=== PATIENT | female | born 1980 | race Caucasian/White ===

== ENCOUNTER 2018-12-17 16:12 | Emergency (ER) | payer OTHER, SELFPAY ==
[2018-12-17] VITALS (12 sets, daily range): BP systolic 90–116; BP diastolic 62–105; PULSE 53–67; RESP 12–19; TEMP 36.6; O2SAT 98–100
--- NOTE | 2018-12-17 16:21 | DI.RAD.S_ITS ---
PROCEDURE: XR CHEST 1V INDICATIONS: Chest pain. Short of breath. TECHNIQUE: One view of the chest was acquired. COMPARISON: [facility], CT, ABDOMEN/PELVIS WITH CONTRAST, 08/09/2014, 16:45. FINDINGS: Surgical changes and devices: None. Lungs and pleura: An incomplete inspiratory result is noted, causing a crowded appearance to the lung markings. No focal infiltrates are seen. No pneumothorax or significant pleural effusions are seen. Mediastinum: Mediastinal contours appear normal. Heart size is normal. Bones and chest wall: No suspicious bony lesions. Overlying soft tissues appear unremarkable. IMPRESSION: Portable chest within normal limits. Dictated by: Wayne Siegel M.D. on 12/17/2018 at 15:59 Approved by: Wayne Siegel M.D. on 12/17/2018 at 15:59
[2018-12-17] MEDS: ASPIRIN 81 MG TAB 324 MG PO (16:37)
[2018-12-17] MEDS: NITROGLYCERIN 0.4 MG SL TAB SL ×3 (16:37→16:51)
[2018-12-17] MEDS: SODIUM CHLORIDE 0.9% 1,000 ML 150 ML IV (16:38)
[2018-12-17 16:41] LABS: Add Manual Diff / Slide Review NO; Basophils Absolute Auto 0 /uL (0-100); Basophils Percent Auto 0.5 % (0-2); Eosinophils Absolute Auto 0 /uL (0-450); Eosinophils Percent Auto 0.2 % (2-4); Hematocrit 41.2 % (36-46); Hemoglobin 14.1 g/dL (12.0-16.0); Lymphocytes Absolute Auto 3300 /uL (1100-4500); Lymphocytes Percent Auto 34.6 % (25-40); Mean Corpuscular HGB Conc 34.3 % (30-36); Mean Corpuscular Hemoglobin 29.7 PG (26-34); Mean Corpuscular Volume 86.6 fL (80-100); Monocytes Absolute Auto 500 /uL (0-900); Monocytes Percent Auto 5.2 % (3-14); Neutrophils Absolute Auto 5700 /uL (1500-7000); Neutrophils Percent Auto 59.5 % (50-75); Platelet Count 368 X10^3/uL (150-400); Red Blood Cell Count 4.76 X10^6/uL (4.0-5.2); Red Cell Distribution Width 13.8 % (11.6-14.8); White Blood Cell Count 9.6 X10^3/uL (4.5-11.0)
[2018-12-17 16:52] LABS: Alanine Aminotransferase 32 IU/L (9-52); Albumin 4.6 g/dL (3.5-5.0); Albumin Globulin Ratio 1.4 (1.0-2.8); Alkaline Phosphatase 73 U/L (38-126); Aspartate Aminotransferase 29 IU/L (14-36); BUN Creatinine Ratio 12.9 (6-22); Bilirubin Total 0.7 mg/dL (0.2-1.3); Blood Urea Nitrogen 9 mg/dL (7-17); Calcium 9.7 mg/dL (8.4-10.2); Carbon Dioxide 25 mmol/L (22-32); Chloride 103 mmol/L (98-107); Creatine Kinase 106 U/L (30-135); Estimated Glomerular Filt Rate > 60.0 mL/min (>60); Globulin 3.2 g/dL (1.7-4.1); Glucose 103 mg/dL (70-100); HEMOLYSIS 19 (0-50); Lipase 30 U/L (23-300); Potassium 3.9 mmol/L (3.4-5.1); Sodium 139 mmol/L (137-145); Total Protein 7.8 g/dL (6.3-8.2)
[2018-12-17 17:07] LABS: CKMB % Relative Index 5.5 % (1.5-5.0); Creatine Kinase MB 5.81 ng/mL (<2.37); Troponin I 0.625 ng/mL (0.01-0.034)
[2018-12-17 17:08] LABS: B Type Natriuretic Peptide < 100 (<100)
--- NOTE | 2018-12-17 17:08 | DI.CT.S_ITS ---
PROCEDURE: CT ANGIO CHEST PE PROTOCOL INDICATIONS: CP, SOB TECHNIQUE: After the administration of intravenous contrast, 2 mm thick sections acquired from the pulmonary apices to the posterior costophrenic angles. 3-dimensional maximum intensity projection (MIP) coronal and sagittal reformats were then acquired through the thorax. For radiation dose reduction, the following was used: automated exposure control, adjustment of mA and/or kV according to patient size. COMPARISON: None. FINDINGS: Image quality: Excellent. Pulmonary arteries: Pulmonary arteries are normal in size, and demonstrate no intraluminal filling defects to suggest central pulmonary embolism. Lungs and pleura: Lungs are clear. No pleural effusions or pneumothorax. Central and peripheral airways are patent. Mediastinum: Heart size is normal, without pericardial effusion. No mediastinal or hilar adenopathy. Thoracic aorta is normal in caliber and enhancement. Esophagus is normal in caliber, without hiatal hernia. Bones and chest wall: No suspicious bony lesions. Ribs and thoracic spine appear intact throughout. Thyroid gland is unremarkable. No axillary or supraclavicular adenopathy. Abdomen: Visualized upper abdominal solid organs appear normal in the early arterial phase of enhancement. Hepatic steatosis. IMPRESSION: 1. No pulmonary embolism. 2. No acute airspace opacity. 3. Hepatic steatosis. Comment: Findings were discussed with [facility] ED physician at the time of dictation. Dictated by: Paulie Sinha M.D. on 12/17/2018 at 17:50 Approved by: Paulie Sinha M.D. on 12/17/2018 at 17:56
[2018-12-17] MEDS: HEPARIN 5,000 UNIT/ML VIAL 5000 UNIT IV (17:14)
[2018-12-17 17:32] LABS: PTT Partial Thromboplastin Tim 28 SECONDS (26.4-36.2)
--- NOTE | 2018-12-17 17:43 | ED.CHESTPAIN ---
HPI - Chest Pain General Chief Complaint: Chest Pain Stated Complaint: chest pain x6 days Time Seen by Provider: 12/17/18 16:14 Source: patient Mode of arrival: wheelchair Limitations: no limitations History of Present Illness HPI narrative: 38-year-old female smoker with extensive family cardiac history (father in his 30s of [place]) presents with left anterior crushing chest pain with radiation to her left shoulder and her back which is made worse with exertion. She has associated significant shortness of breath nausea and diaphoresis. She denies any injury, recent trauma, history of clot. This is her 3rd visit in the past few days of her similar. The 1st visit she was diagnosed with what sounded like a musculoskeletal problem, on the 2nd visit she had a very slight bump in her troponin but still in the indeterminate range and was given return precautions. Her symptoms are worsening and now with minimal exertion she experiences significant trouble. She had did take a break between the waiting room and the emergency department because she became so short of breath MD complaint: chest pain Onset (ago): day(s) Duration: progressively worsening Onset: during rest Pain location: left chest Severity: severe Quality: aching and heaviness Pain radiation: LUE and neck Relieving factors: rest Exacerbating factors: exertion Associated symptoms: nausea, diaphoresis and dyspnea Treatments prior to arrival chest pain: none Related Data On Oral Contraceptives: No Allergies Allergy/AdvReac Type Severity Reaction Status Date / Time From ALEVE Allergy Intermediate SHAKES , Uncoded 08/17/17 12:25 PASS OUT IBUPROFEN Allergy Intermediate SHAKES, Uncoded 08/17/17 12:25 PASS OUT, VOMITING CODEINE Allergy Mild N/V Uncoded 08/17/17 12:25 From LYRICA Allergy Mild VERTIGO Uncoded 08/17/17 12:25 From AMBIEN Allergy Unknown HALLUCINATIONS, Uncoded 08/17/17 12:25 DIZZINESS, LIGHTHEADEDNESS Review of Systems Constitutional Denies chills, Denies fever(s), Denies lethargy and Denies weakness Eyes Denies change in vision, Denies eye discharge, Denies irritation and Denies loss of vision ENT Ears, Nose, Mouth, and Throat: Denies change in voice, Denies neck pain and Denies sore throat Cardiovascular Reports chest pain, Denies irregular heart rhythm, Denies lightheadedness, Denies palpitations, Reports dyspnea, Reports dyspnea on exertion and Denies orthopnea Respiratory Denies cough, Reports dyspnea, Reports dyspnea on exertion and Denies wheezing Gastrointestinal Gastrointestinal: Denies abdominal pain, Denies change in bowel habits, Denies diarrhea, Denies nausea and Denies vomiting Genitourinary Denies hematuria, Denies flank pain, Denies urinary incontinence and Denies urinary urgency Musculoskeletal Denies neck pain Integumentary/Breasts Denies pruritus, Denies erythema, Denies rash and Denies wounds Neurologic Denies confusion, Denies loss of vision and Denies weakness Psychiatric Denies anxiety, Denies confusion, Denies depression, Denies homicidal ideation and Denies suicidal ideation Endocrine Denies palpitations Hematologic/Lymphatic Denies easy bruising Allergic/Immunologic Denies wheezing PFSH Social History Smoking Status: Current every day smoker Social History Smoking Status: Current every day smoker Exam Narrative Exam Narrative: GENERAL: [38] year old patient appears stated age. Well-nourished, well-developed patient, in severe distress. Clutching her chest, diaphoretic, in respiratory distress HEAD: Atraumatic. Normocephalic. EYES: Pupils equal round and reactive. Extraocular motions intact. No scleral icterus. No injection or drainage. ENT: Nose without bleeding, purulent drainage. Throat without erythema, tonsillar hypertrophy or exudate. Airway patent. NECK: Trachea midline. Non tender CARDIOVASCULAR: Regular rate and rhythm without murmurs, gallops, or rubs. RESPIRATORY: Clear to auscultation. Breath sounds equal bilaterally. No wheezes, rales, or rhonchi. GASTROINTESTINAL: Abdomen soft, non-tender, nondistended. EXTREMITIES: No edema or joint tenderness. BACK: Nontender without deformity or crepitance. No flank tenderness. NEURO: AOx3. SKIN: No rash or erythema of visible areas Initial Vital Signs Initial Vital Signs: Vital Signs Pulse Rate 67 12/17/18 16:14 Respiratory Rate 17 12/17/18 16:14 Blood Pressure 112/76 12/17/18 16:14 Pulse Oximetry 100 12/17/18 16:14 Course Orders Ordered: ED Orders 12/17/18 16:20 B Type Natriuretic Peptide Stat Complete Blood Count AUTO DIFF Stat Comprehensive Metabolic Panel Stat Lipase Stat Partial Thromboplastin Time Stat Troponin & CK Cardiac Panel Stat 12/17/18 16:21 XR chest 1V Stat EKG-12 Lead Stat 12/17/18 17:08 CT angio chest PE protocol Stat 12/17/18 17:15 PTT [Partial Thromboplastin Time] Q6H 12/17/18 23:15 PTT [Partial Thromboplastin Time] Q6H 12/18/18 05:15 PTT [Partial Thromboplastin Time] Q6H 12/18/18 11:15 PTT [Partial Thromboplastin Time] Q6H Sodium Chloride (Normal Saline 0.9%) 1,000 mls @ 150 mls/hr IV CONT ELLIOT Last Admin: 12/17/18 16:38 Dose: 150 mls/hr Heparin Sodium/Dextrose (Heparin Drip) 25,000 unit in 500 mls @ 19.16 mls/hr IV CONT ELLIOT; Protocol Last Admin: 12/17/18 17:49 Dose: 12 units/kg/hr, 19.16 mls/hr Discontinued Medications Aspirin (Aspirin Chew) 324 mg PO NOW ONE Stop: 12/17/18 16:22 Last Admin: 12/17/18 16:37 Dose: 324 mg Fentanyl (Sublimaze) 50 mcg IV NOW ONE Stop: 12/17/18 18:13 Last Admin: 12/17/18 18:19 Dose: 50 mcg Heparin Sodium (Porcine) (Heparin) 5,000 unit IV NOW ONE Stop: 12/17/18 17:08 Last Admin: 12/17/18 17:14 Dose: 5,000 unit Metoprolol Tartrate (Lopressor) 5 mg IV NOW ONE Stop: 12/17/18 16:22 Last Admin: 12/17/18 17:45 Dose: Not Given Nitroglycerin (Nitrostat) 0.4 mg SL [id number] PRN PRN Reason: Chest Pain Last Admin: 12/17/18 16:51 Dose: 0.4 mg Admin: 12/17/18 16:44 Dose: 0.4 mg Admin: 12/17/18 16:37 Dose: 0.4 mg Reevaluation(s) Reevaluation #1: minimal change with NG 0.4SL, however patient had large drop in BP. HR remains in the 50s, will hold metoprolol Reevaluation #2: given BP in 90s, will hold on morphine, patient given Fentanyl Consultations Consultation #1: call to cardio, happy with our workup and plan, admit to hospitalist Consultation #2: Dr. Suero happy to accept Vital Signs - 8 hr 12/17/18 16:14 12/17/18 16:24 12/17/18 16:30 Temperature 97.9 F Pulse Rate 67 64 58 L Respiratory Rate 17 19 17 Blood Pressure 112/76 Blood Pressure [Right Arm] 112/76 116/73 Pulse Oximetry 100 100 100 12/17/18 16:37 12/17/18 16:44 12/17/18 16:50 Temperature Pulse Rate 63 53 L 56 L Respiratory Rate Blood Pressure 116/73 104/77 115/105 H Blood Pressure [Right Arm] Pulse Oximetry 12/17/18 16:51 12/17/18 16:55 12/17/18 17:00 Temperature Pulse Rate 56 L 54 L 55 L Respiratory Rate 17 Blood Pressure 115/102 H 90/62 Blood Pressure [Right Arm] 116/73 Pulse Oximetry 100 12/17/18 17:30 12/17/18 18:21 Temperature Pulse Rate 62 62 Respiratory Rate 15 12 Blood Pressure Blood Pressure [Right Arm] 115/76 111/79 Pulse Oximetry 99 98 MDM - Chest Pain Lab Data Result diagrams: 12/17/18 16:20 12/17/18 16:20 Lab Results 12/17/18 12/17/18 12/17/18 Range/Units 16:20 16:20 16:20 WBC 9.6 (4.5-11.0) X10^3/uL RBC 4.76 (4.0-5.2) X10^6/uL Hgb 14.1 (12.0-16.0) g/dL Hct 41.2 (36-46) % MCV 86.6 (80-100) fL MCH 29.7 (26-34) PG MCHC 34.3 (30-36) % RDW 13.8 (11.6-14.8) % Plt Count 368 (150-400) X10^3/uL Neut % (Auto) 59.5 (50-75) % Lymph % (Auto) 34.6 (25-40) % [place] % (Auto) 5.2 (3-14) % Eos % (Auto) 0.2 L (2-4) % Baso % (Auto) 0.5 (0-2) % Neut # (Auto) 5700 (1039-5469) /uL Lymph # (Auto) 3300 (1798-2370) /uL [place] # (Auto) 500 (0-900) /uL Eos # (Auto) 0 (0-450) /uL Baso # (Auto) 0 (0-100) /uL APTT 28 (26.4-36.2) SECONDS Sodium 139 (137-145) mmol/L Potassium 3.9 (3.4-5.1) mmol/L Chloride 103 (98-107) mmol/L Carbon Dioxide 25 (22-32) mmol/L BUN 9 (7-17) mg/dL Creatinine 0.70 (0.52-1.04) mg/dL Estimated GFR > 60.0 (>60) mL/min BUN/Creatinine Ratio 12.9 (6-22) Glucose 103 H (70-100) mg/dL Calcium 9.7 (8.4-10.2) mg/dL Total Bilirubin 0.7 (0.2-1.3) mg/dL AST 29 (14-36) IU/L ALT 32 (9-52) IU/L Alkaline Phosphatase 73 (38-126) U/L Total Creatine Kinase 106 (30-135) U/L CK-MB (CK-2) 5.81 H (<2.37) ng/mL CK-MB (CK-2) Rel Index 5.5 H (1.5-5.0) % Troponin I 0.625 H* (0.01-0.034) ng/mL B-Natriuretic Peptide < 100 (<100) Total Protein 7.8 (6.3-8.2) g/dL Albumin 4.6 (3.5-5.0) g/dL Globulin 3.2 (1.7-4.1) g/dL Albumin/Globulin Ratio 1.4 (1.0-2.8) Lipase 30 (23-300) U/L Imaging Data CT scan - chest: Radiologist's impression: [address] [id number] [address] Scan Report Signed Patient: Daphne Connelly RMR#: [id number] : 1980Acct:[id number] Age/Sex: 38 / FDate of Service: 12/17/18 Loc: ED Accession Number: [id number] Procedure: CT angio chest PE protocol Ordering Provider: Jhon Cabral D.O. PROCEDURE: CT ANGIO CHEST PE PROTOCOL INDICATIONS: CP, SOB TECHNIQUE: After the administration of intravenous contrast, 2 mm thick sections acquired from the pulmonary apices to the posterior costophrenic angles. 3-dimensional maximum intensity projection (MIP) coronal and sagittal reformats were then acquired through the thorax. For radiation dose reduction, the following was used: automated exposure control, adjustment of mA and/or kV according to patient size. COMPARISON: None. FINDINGS: Image quality: Excellent. Pulmonary arteries: Pulmonary arteries are normal in size, and demonstrate no intraluminal filling defects to suggest central pulmonary embolism. Lungs and pleura: Lungs are clear. No pleural effusions or pneumothorax. Central and peripheral airways are patent. Mediastinum: Heart size is normal, without pericardial effusion. No mediastinal or hilar adenopathy. Thoracic aorta is normal in caliber and enhancement. Esophagus is normal in caliber, without hiatal hernia. Bones and chest wall: No suspicious bony lesions. Ribs and thoracic spine appear intact throughout. Thyroid gland is unremarkable. No axillary or supraclavicular adenopathy. Abdomen: Visualized upper abdominal solid organs appear normal in the early arterial phase of enhancement. Hepatic steatosis. IMPRESSION: 1. No pulmonary embolism. 2. No acute airspace opacity. 3. Hepatic steatosis. Comment: Findings were discussed with [facility] ED physician at the time of dictation. Dictated by: Paulie Sinha M.D. on 12/17/2018 at 17:50 Approved by: Paulie Sinha M.D. on 12/17/2018 at 17:56 Critical Care Time Critical Care Time: Yes Total Critical Care Time: 30 Attestation: The high probability of a clinically significant, sudden or life threatening deterioration of the [CV] system(s) required my full and direct attention, intervention and personal management. The aggregate critical care time was [30] minutes. This time is in addition to time spent performing reported procedures but includes the following: [x] Data Review and interpretation [x] Patient assessment and monitoring of vital signs [x] Documentation [x] Medication orders and management Discharge Plan Departure Patient Disposition: [facility] Clinical Impression: ACS (acute coronary syndrome) Referrals: Dane Briseno MD [Primary Care Provider] -
[2018-12-17] MEDS: HEPARIN DRIP 25,000 UNIT/500 ML IV.SOLN 19.16 UNIT IV (17:49)
--- NOTE | 2018-12-17 17:50 | ED_ITS ---
HPI - Chest Pain General Chief Complaint: Chest Pain Stated Complaint: chest pain x6 days Time Seen by Provider: 12/17/18 16:14 Source: patient Mode of arrival: wheelchair Limitations: no limitations History of Present Illness HPI narrative: 38-year-old female smoker with extensive family cardiac history (father in his 30s of [place]) presents with left anterior crushing chest pain with radiation to her left shoulder and her back which is made worse with exertion. She has associated significant shortness of breath nausea and diaphoresis. She denies any injury, recent trauma, history of clot. This is her 3rd visit in the past few days of her similar. The 1st visit she was diagnosed with what sounded like a musculoskeletal problem, on the 2nd visit she had a very slight bump in her troponin but still in the indeterminate range and was given return precautions. Her symptoms are worsening and now with minimal exertion she experiences significant trouble. She had did take a break between the waiting room and the emergency department because she became so short of breath MD complaint: chest pain Onset (ago): day(s) Duration: progressively worsening Onset: during rest Pain location: left chest Severity: severe Quality: aching and heaviness Pain radiation: LUE and neck Relieving factors: rest Exacerbating factors: exertion Associated symptoms: nausea, diaphoresis and dyspnea Treatments prior to arrival chest pain: none Related Data On Oral Contraceptives: No Allergies Allergy/AdvReac Type Severity Reaction Status Date / Time From ALEVE Allergy Intermediate SHAKES , Uncoded 08/17/17 12:25 PASS OUT IBUPROFEN Allergy Intermediate SHAKES, Uncoded 08/17/17 12:25 PASS OUT, VOMITING CODEINE Allergy Mild N/V Uncoded 08/17/17 12:25 From LYRICA Allergy Mild VERTIGO Uncoded 08/17/17 12:25 From AMBIEN Allergy Unknown HALLUCINATIONS, Uncoded 08/17/17 12:25 DIZZINESS, LIGHTHEADEDNESS Review of Systems Constitutional Denies chills, Denies fever(s), Denies lethargy and Denies weakness Eyes Denies change in vision, Denies eye discharge, Denies irritation and Denies loss of vision ENT Ears, Nose, Mouth, and Throat: Denies change in voice, Denies neck pain and Denies sore throat Cardiovascular Reports chest pain, Denies irregular heart rhythm, Denies lightheadedness, Denies palpitations, Reports dyspnea, Reports dyspnea on exertion and Denies orthopnea Respiratory Denies cough, Reports dyspnea, Reports dyspnea on exertion and Denies wheezing Gastrointestinal Gastrointestinal: Denies abdominal pain, Denies change in bowel habits, Denies diarrhea, Denies nausea and Denies vomiting Genitourinary Denies hematuria, Denies flank pain, Denies urinary incontinence and Denies urinary urgency Musculoskeletal Denies neck pain Integumentary/Breasts Denies pruritus, Denies erythema, Denies rash and Denies wounds Neurologic Denies confusion, Denies loss of vision and Denies weakness Psychiatric Denies anxiety, Denies confusion, Denies depression, Denies homicidal ideation and Denies suicidal ideation Endocrine Denies palpitations Hematologic/Lymphatic Denies easy bruising Allergic/Immunologic Denies wheezing PFSH Social History Smoking Status: Current every day smoker Social History Smoking Status: Current every day smoker Exam Narrative Exam Narrative: GENERAL: [38] year old patient appears stated age. Well-nourished, well-developed patient, in severe distress. Clutching her chest, diaphoretic, in respiratory distress HEAD: Atraumatic. Normocephalic. EYES: Pupils equal round and reactive. Extraocular motions intact. No scleral icterus. No injection or drainage. ENT: Nose without bleeding, purulent drainage. Throat without erythema, tonsillar hypertrophy or exudate. Airway patent. NECK: Trachea midline. Non tender CARDIOVASCULAR: Regular rate and rhythm without murmurs, gallops, or rubs. RESPIRATORY: Clear to auscultation. Breath sounds equal bilaterally. No wheezes, rales, or rhonchi. GASTROINTESTINAL: Abdomen soft, non-tender, nondistended. EXTREMITIES: No edema or joint tenderness. BACK: Nontender without deformity or crepitance. No flank tenderness. NEURO: AOx3. SKIN: No rash or erythema of visible areas Initial Vital Signs Initial Vital Signs: Vital Signs Pulse Rate 67 12/17/18 16:14 Respiratory Rate 17 12/17/18 16:14 Blood Pressure 112/76 12/17/18 16:14 Pulse Oximetry 100 12/17/18 16:14 Course Orders Ordered: ED Orders 12/17/18 16:20 B Type Natriuretic Peptide Stat Complete Blood Count AUTO DIFF Stat Comprehensive Metabolic Panel Stat Lipase Stat Partial Thromboplastin Time Stat Troponin & CK Cardiac Panel Stat 12/17/18 16:21 XR chest 1V Stat EKG-12 Lead Stat 12/17/18 17:08 CT angio chest PE protocol Stat 12/17/18 17:15 PTT [Partial Thromboplastin Time] Q6H 12/17/18 23:15 PTT [Partial Thromboplastin Time] Q6H 12/18/18 05:15 PTT [Partial Thromboplastin Time] Q6H 12/18/18 11:15 PTT [Partial Thromboplastin Time] Q6H Sodium Chloride (Normal Saline 0.9%) 1,000 mls @ 150 mls/hr IV CONT ELLIOT Last Admin: 12/17/18 16:38 Dose: 150 mls/hr Heparin Sodium/Dextrose (Heparin Drip) 25,000 unit in 500 mls @ 19.16 mls/hr IV CONT ELLIOT; Protocol Last Admin: 12/17/18 17:49 Dose: 12 units/kg/hr, 19.16 mls/hr Discontinued Medications Aspirin (Aspirin Chew) 324 mg PO NOW ONE Stop: 12/17/18 16:22 Last Admin: 12/17/18 16:37 Dose: 324 mg Fentanyl (Sublimaze) 50 mcg IV NOW ONE Stop: 12/17/18 18:13 Last Admin: 12/17/18 18:19 Dose: 50 mcg Heparin Sodium (Porcine) (Heparin) 5,000 unit IV NOW ONE Stop: 12/17/18 17:08 Last Admin: 12/17/18 17:14 Dose: 5,000 unit Metoprolol Tartrate (Lopressor) 5 mg IV NOW ONE Stop: 12/17/18 16:22 Last Admin: 12/17/18 17:45 Dose: Not Given Nitroglycerin (Nitrostat) 0.4 mg SL [id number] PRN PRN Reason: Chest Pain Last Admin: 12/17/18 16:51 Dose: 0.4 mg Admin: 12/17/18 16:44 Dose: 0.4 mg Admin: 12/17/18 16:37 Dose: 0.4 mg Reevaluation(s) Reevaluation #1: minimal change with NG 0.4SL, however patient had large drop in BP. HR remains in the 50s, will hold metoprolol Reevaluation #2: given BP in 90s, will hold on morphine, patient given Fentanyl Consultations Consultation #1: call to cardio, happy with our workup and plan, admit to hospitalist Consultation #2: Dr. Suero happy to accept Vital Signs - 8 hr 12/17/18 16:14 12/17/18 16:24 12/17/18 16:30 Temperature 97.9 F Pulse Rate 67 64 58 L Respiratory Rate 17 19 17 Blood Pressure 112/76 Blood Pressure [Right Arm] 112/76 116/73 Pulse Oximetry 100 100 100 12/17/18 16:37 12/17/18 16:44 12/17/18 16:50 Temperature Pulse Rate 63 53 L 56 L Respiratory Rate Blood Pressure 116/73 104/77 115/105 H Blood Pressure [Right Arm] Pulse Oximetry 12/17/18 16:51 12/17/18 16:55 12/17/18 17:00 Temperature Pulse Rate 56 L 54 L 55 L Respiratory Rate 17 Blood Pressure 115/102 H 90/62 Blood Pressure [Right Arm] 116/73 Pulse Oximetry 100 12/17/18 17:30 12/17/18 18:21 Temperature Pulse Rate 62 62 Respiratory Rate 15 12 Blood Pressure Blood Pressure [Right Arm] 115/76 111/79 Pulse Oximetry 99 98 MDM - Chest Pain Lab Data Result diagrams: 12/17/18 16:20 12/17/18 16:20 Lab Results 12/17/18 12/17/18 12/17/18 Range/Units 16:20 16:20 16:20 WBC 9.6 (4.5-11.0) X10^3/uL RBC 4.76 (4.0-5.2) X10^6/uL Hgb 14.1 (12.0-16.0) g/dL Hct 41.2 (36-46) % MCV 86.6 (80-100) fL MCH 29.7 (26-34) PG MCHC 34.3 (30-36) % RDW 13.8 (11.6-14.8) % Plt Count 368 (150-400) X10^3/uL Neut % (Auto) 59.5 (50-75) % Lymph % (Auto) 34.6 (25-40) % [place] % (Auto) 5.2 (3-14) % Eos % (Auto) 0.2 L (2-4) % Baso % (Auto) 0.5 (0-2) % Neut # (Auto) 5700 (0090-9185) /uL Lymph # (Auto) 3300 (3700-2494) /uL [place] # (Auto) 500 (0-900) /uL Eos # (Auto) 0 (0-450) /uL Baso # (Auto) 0 (0-100) /uL APTT 28 (26.4-36.2) SECONDS Sodium 139 (137-145) mmol/L Potassium 3.9 (3.4-5.1) mmol/L Chloride 103 (98-107) mmol/L Carbon Dioxide 25 (22-32) mmol/L BUN 9 (7-17) mg/dL Creatinine 0.70 (0.52-1.04) mg/dL Estimated GFR > 60.0 (>60) mL/min BUN/Creatinine Ratio 12.9 (6-22) Glucose 103 H (70-100) mg/dL Calcium 9.7 (8.4-10.2) mg/dL Total Bilirubin 0.7 (0.2-1.3) mg/dL AST 29 (14-36) IU/L ALT 32 (9-52) IU/L Alkaline Phosphatase 73 (38-126) U/L Total Creatine Kinase 106 (30-135) U/L CK-MB (CK-2) 5.81 H (<2.37) ng/mL CK-MB (CK-2) Rel Index 5.5 H (1.5-5.0) % Troponin I 0.625 H* (0.01-0.034) ng/mL B-Natriuretic Peptide < 100 (<100) Total Protein 7.8 (6.3-8.2) g/dL Albumin 4.6 (3.5-5.0) g/dL Globulin 3.2 (1.7-4.1) g/dL Albumin/Globulin Ratio 1.4 (1.0-2.8) Lipase 30 (23-300) U/L Imaging Data CT scan - chest: Radiologist's impression: [address] [address] [address] Scan Report Signed Patient: Daphne Connelly RMR#: [id number] : 1980Acct:[id number] Age/Sex: 38 / FDate of Service: 12/17/18 Loc: ED Accession Number: [id number] Procedure: CT angio chest PE protocol Ordering Provider: Jhon Cabral D.O. PROCEDURE: CT ANGIO CHEST PE PROTOCOL INDICATIONS: CP, SOB TECHNIQUE: After the administration of intravenous contrast, 2 mm thick sections acquired from the pulmonary apices to the posterior costophrenic angles. 3-dimensional maximum intensity projection (MIP) coronal and sagittal reformats were then acquired through the thorax. For radiation dose reduction, the following was used: automated exposure contro l, adjustment of mA and/or kV according to patient size. COMPARISON: None. FINDINGS: Image quality: Excellent. Pulmonary arteries: Pulmonary arteries are normal in size, and demonstrate no intraluminal filling defects to suggest central pulmonary embolism. Lungs and pleura: Lungs are clear. No pleural effusions or pneumothorax. Central and peripheral airways are patent. Mediastinum: Heart size is normal, without pericardial effusion. No mediastinal or hilar adenopathy. Thoracic aorta is normal in caliber and enhancement. Esophagus is normal in caliber, without hiatal hernia. Bones and chest wall: No suspicious bony lesions. Ribs and thoracic spine victorino ear intact throughout. Thyroid gland is unremarkable. No axillary or supraclavicular adenopathy. Abdomen: Visualized upper abdominal solid organs appear normal in the early arterial phase of enhancement. Hepatic steatosis. IMPRESSION: 1. No pulmonary embolism. 2. No acute airspace opacity. 3. Hepatic steatosis. Comment: Findings were discussed with [facility] ED physician at the time of dictation. Dictated by: Paulie Sinha M.D. on 12/17/2018 at 17:50 Approved by: Paulie Sinha M.D. on 12/17/2018 at 17:56 Critical Care Time Critical Care Time: Yes Total Critical Care Time: 30 Attestation: The high probability of a clinically significant, sudden or life threatening deterioration of the [CV] system(s) required my full and direct attention, int ervention and personal management. The aggregate critical care time was [30] minutes. This time is in addition to time spent performing reported procedures but includes the following: [x] Data Review and interpretation [x] Patient assessment and monitoring of vital signs [x] Documentation [x] Medication orders and management Discharge Plan Departure Patient Disposition: [facility] Clinical Impression: ACS (acute coronary syndrome) Referrals: Dane Briseno MD [Primary Care Provider] -
[2018-12-17] MEDS: fentaNYL 100 MCG/2 ML INJ 50 MCG IV (18:19)
--- NOTE | 2018-12-17 18:47 | PC.NURSE ---
Recap Summary note, pt has had chest pain in her upper left chest into her shoulder and arm, feels like an ache and makes it hard to breathe Lungs are clear, pt alert and able to get needs met. Today shown to have an elevated troponin, hx of cardiac compromise in her immediate family. All meds we've given have not helped so far. Patient making arrangements for her children and herself as she is being transferred.
[2018-12-17] MEDS: ONDANSETRON 4 MG/2 ML INJ IV (19:36)
[2018-12-17] MEDS: MORPHINE 4 MG/ML INJ IV (19:36)
== END 2018-12-17 19:51 | disposition short-term general hospital (02) ==
PROVIDERS: Emergency Provider Emergency Medicine
DX: I24.9 Acute ischemic heart disease, unspecified (principal)
CPT/HCPCS: 36591; 71045; 71275; 80053; 82550; 82553; 83690; 83880; 84484; 85025; 85730; 93005; 93010; 96361; 96365; 96375; 96376; 99285; J1644; J2270; J2405; J3010; Q9967

== ENCOUNTER 2020-03-22 11:40 | Emergency (ER) | payer OTHER, SELFPAY ==
[2020-03-22] VITALS (12 sets, daily range): BP systolic 125–162; BP diastolic 56–84; PULSE 67–87; RESP 14–18; TEMP 36.8; O2SAT 96–99; BMI 34.5
[2020-03-22 12:49] LABS: Add Manual Diff / Slide Review NO; Basophils Absolute Auto 0 /uL (0-100); Basophils Percent Auto 0.4 % (0-2); Eosinophils Absolute Auto 300 /uL (0-450); Eosinophils Percent Auto 4.4 % (2-4); Hematocrit 38.1 % (36-46); Hemoglobin 12.9 g/dL (12.0-16.0); Lymphocytes Absolute Auto 2300 /uL (1100-4500); Lymphocytes Percent Auto 33.2 % (25-40); Mean Corpuscular Hemoglobin 29.6 PG (26-34); Mean Corpuscular Volume 87.2 fL (80-100); Monocytes Absolute Auto 500 /uL (0-900); Monocytes Percent Auto 6.4 % (3-14); Neutrophils Absolute Auto 3900 /uL (1500-7000); Neutrophils Percent Auto 55.6 % (50-75); Platelet Count 356 X10^3/uL (150-400); Red Blood Cell Count 4.37 X10^6/uL (4.0-5.2); Red Cell Distribution Width 13.4 % (11.6-14.8); White Blood Cell Count 7.1 X10^3/uL (4.5-11.0)
[2020-03-22 12:57] LABS: Alanine Aminotransferase 44 IU/L (<35); Albumin 4.1 g/dL (3.5-5.0); Albumin Globulin Ratio 1.2 (1.0-2.8); Alkaline Phosphatase 115 U/L (38-126); Aspartate Aminotransferase 44 IU/L (14-36); BUN Creatinine Ratio 15.9 (6-22); Bilirubin Total 0.3 mg/dL (0.2-1.3); Blood Urea Nitrogen 11 mg/dL (7-17); Calcium 9.4 mg/dL (8.4-10.2); Carbon Dioxide 30 mmol/L (22-32); Chloride 106 mmol/L (98-107); Estimated Glomerular Filt Rate > 60.0 mL/min (>60); Globulin 3.3 g/dL (1.7-4.1); Glucose 110 mg/dL (70-100); HEMOLYSIS < 15 (0-50); Lactate (Lactic Acid) 0.9 mmol/L (0.7-2.1); Potassium 4.1 mmol/L (3.4-5.1); Sodium 140 mmol/L (137-145); Total Protein 7.4 g/dL (6.3-8.2)
[2020-03-22 13:06] LABS: NT-proBNP (BNP-Adult 18+) 275 pg/mL (<125)
[2020-03-22 13:13] LABS: Procalcitonin < 0.05 ng/mL (<0.5)
--- NOTE | 2020-03-22 14:18 | ED_ITS ---
HPI - Extremity Problem <LONNIE Valdez - Last Filed: 03/22/20 15:36> General Chief complaint: Extremity Problem,Nontraumatic Stated complaint: Bad Rash On Both Legs and Hands, Legs Swollen Time Seen by Provider: 03/22/20 12:27 Source: patient Mode of arrival: Ambulatory Limitations: no limitations History of Present Illness HPI Narrative: The patient is a 39-year-old female current smoker with history of cardiac disease who presents with a chief complaint of a rash in bilateral l ower legs extending up to her hands. She states she has had this rash coming over the past 10 years, she put the cream a and it goes away. She is not sure what clean her primary care provider has prescribed. She states that it has gotten really bad in the past week and half to 2 weeks. She states she is scratching so bad because the rash is so itchy. She states that she has developed wounds and not sure if it is related to scratching or not. She denies any fevers nausea vomiting or diarrhea. She states that she has used multiple [id number] creams, and she is very frustrated because she is having a hard time sleeping due to the itch. Related Data Previous Rx's Medication Instructions Recorded hydroxyzine HCl 50 mg PO TID PRN #14 tab 03/22/20 prednisone 40 mg PO DAILY #10 tab 03/22/20 Allergies Allergy/AdvReac Type Severity Reaction Status Date / Time From ALEVE Allergy Intermediate SHAKES , Uncoded 03/22/20 11:48 PASS OUT IBUPROFEN Allergy Intermediate SHAKES, Uncoded 03/22/20 11:48 PASS OUT, VOMITING CODEINE Allergy Mild N/V Uncoded 03/22/20 11:48 From LYRICA Allergy Mild VERTIGO Uncoded 03/22/20 11:48 From AMBIEN Allergy Unknown HALLUCINATIONS, Uncoded 03/22/20 11:48 DIZZINESS, LIGHTHEADEDNESS Review of Systems <LONNIE Valdez - Last Filed: 03/22/20 15:36> Review of Systems Narrative: GENERAL: Denies chills, fatigue, malaise, fever, sweats. HEENT: Denies sinus pain, ear pain, sore throat, difficulty swallowing, dizziness. RESPIRATORY: Denies dyspnea, cough, wheezing, hemoptysis, sputum. CARDIOVASCULAR: Denies chest pain, palpitations, orthopnea, edema, GASTROINTESTINAL: Denies nausea, vomiting, abdominal pain, diarrhea, constipation, melena. : Denies dysuria, frequency, incontinence, hematuria, urinary retention. MUSCULOSKELETAL: denies weakness, joint pain, or bony pain SKIN: See HPI NEUROLOGIC: Denies weakness, headache, numbness, change in speech, confusion, seizures, incoordination. PSYCHIATRIC: No concerning psychosocial issues. 12 point review of systems is negative except for those stated above Patient History <LONNIE Valdez - Last Filed: 03/22/20 15:36> Surgical History (Updated 03/22/20 @ 14:21 by LONNIE Valdez) Hx of heart artery stent (Acute) Social History Smoking Status: Current every day smoker Smoking Status: Current every day smoker alcohol intake frequency: holidays/special occasions only Substance Use Type: does not use Exam <LONNIE Valdez - Last Filed: 03/22/20 15:36> Narrative Exam Narrative: GENERAL: This is a well-nourished, well-developed patient, in no acute distress HEAD: Atraumatic. Normocephalic. No temporal or scalp tenderness. EYES: Pupils equal round and reactive. Extraocular motions intact. No scleral icterus. No injection or drainage. ENT: Nose without bleeding, purulent drainage or septal hematoma. Wearing a mask. Airway patent. NECK: Trachea midline. No JVD or lymphadenopathy. Supple, nontender, no meningeal signs. CARDIOVASCULAR: Regular rate and rhythm RESPIRATORY: Clear to auscultation. Breath sounds equal bilaterally. No wheezes, rales, or rhonchi. No cough. No increased respiratory effort. No accessory muscle use. GASTROINTESTINAL: Abdomen soft, non-tender, nondistended. No hepato- splenomegaly, or palpable masses. No guarding. EXTREMITIES: +1 bilateral lower extremity edema. No joint tenderness, effusion, or edema noted. Positive pedal pulses. See skin exam BACK: Nontender without deformity or crepitance. No flank tenderness. NEURO: AOx3. SKIN: Bilateral lower legs with anterior diffuse erythema, multiple scabs and wounds with slight clear drainage Initial Vital Signs Initial Vital Signs: Vital Signs Temperature 98.2 F 03/22/20 11:41 Pulse Rate 85 03/22/20 11:41 Respiratory Rate 14 03/22/20 11:41 Blood Pressure 162/84 H 03/22/20 11:41 Pulse Oximetry 98 03/22/20 11:41 <Holly Bazzi DO - Last Filed: 03/23/20 07:35> Initial Vital Signs Initial Vital Signs: Vital Signs Temperature 98.2 F 03/22/20 11:41 Pulse Rate 85 03/22/20 11:41 Respiratory Rate 14 03/22/20 11:41 Blood Pressure 162/84 H 03/22/20 11:41 Pulse Oximetry 98 03/22/20 11:41 Scores <LONNIE Valdez - Last Filed: 03/22/20 15:36> GCS [place] coma scale eye opening: Spontaneous Pankaj coma scale verbal response: Orientated Pankaj coma scale motor response: Obey commands [place] coma scale total score: 15 Course <LONNIE Valdez - Last Filed: 03/22/20 15:36> Orders Ordered: ED Orders 03/22/20 12:15 Complete Blood Count AUTO DIFF Stat Comprehensive Metabolic Panel Stat Lactate (Lactic Acid) Stat NT-proBNP (BNP-Adult 18+) Stat Procalcitonin Stat 03/22/20 12:40 Wound Culture and Gram Stain Stat Vital Signs Vital signs: Vital Signs - 8 hr 03/22/20 11:41 03/22/20 12:20 03/22/20 12:21 Temperature 98.2 F Pulse Rate 85 87 87 Respiratory Rate 14 Blood Pressure 162/84 H 134/62 Pulse Oximetry 98 98 99 03/22/20 12:30 03/22/20 12:31 03/22/20 13:00 Temperature Pulse Rate 83 83 80 Respiratory Rate Blood Pressure 142/77 H Pulse Oximetry 98 98 97 03/22/20 13:01 03/22/20 13:30 03/22/20 13:31 Temperature Pulse Rate 68 71 83 Respiratory Rate Blood Pressure 154/72 H 125/81 Pulse Oximetry 97 97 96 03/22/20 14:00 03/22/20 14:01 03/22/20 14:43 Temperature Pulse Rate 79 79 67 Respiratory Rate 18 Blood Pressure 126/56 L 126/82 Pulse Oximetry 97 96 96 <Holly Bazzi DO - Last Filed: 03/23/20 07:35> Orders Ordered: ED Orders 03/22/20 12:15 Complete Blood Count AUTO DIFF Stat Comprehensive Metabolic Panel Stat Lactate (Lactic Acid) Stat NT-proBNP (BNP-Adult 18+) Stat Procalcitonin Stat 03/22/20 12:40 Wound Culture and Gram Stain Stat Vital Signs Vital signs: Vital Signs - 8 hr 03/22/20 11:41 03/22/20 12:20 03/22/20 12:21 Temperature 98.2 F Pulse Rate 85 87 87 Respiratory Rate 14 Blood Pressure 162/84 H 134/62 Pulse Oximetry 98 98 99 03/22/20 12:30 03/22/20 12:31 03/22/20 13:00 Temperature Pulse Rate 83 83 80 Respiratory Rate Blood Pressure 142/77 H Pulse Oximetry 98 98 97 03/22/20 13:01 03/22/20 13:30 03/22/20 13:31 Temperature Pulse Rate 68 71 83 Respiratory Rate Blood Pressure 154/72 H 125/81 Pulse Oximetry 97 97 96 03/22/20 14:00 03/22/20 14:01 03/22/20 14:43 Temperature Pulse Rate 79 79 67 Respiratory Rate 18 Blood Pressure 126/56 L 126/82 Pulse Oximetry 97 96 96 MDM - Extremity (Nontraumatic) <Brittanie Lagos, HELP DESK AGENT-BC - Last Filed: 03/22/20 15:36> Lab Data Result diagrams: 03/22/20 12:15 03/22/20 12:15 Labs: Lab Results 03/22/20 03/22/20 03/22/20 Range/Units 12:15 12:15 12:15 WBC 7.1 (4.5-11.0) X10^3/uL RBC 4.37 (4.0-5.2) X10^6/uL Hgb 12.9 (12.0-16.0) g/dL Hct 38.1 (36-46) % MCV 87.2 (80-100) fL MCH 29.6 (26-34) PG MCHC 34.0 (30-36) % RDW 13.4 (11.6-14.8) % Plt Count 356 (150-400) X10^3/uL Neut % (Auto) 55.6 (50-75) % Lymph % (Auto) 33.2 (25-40) % [place] % (Auto) 6.4 (3-14) % Eos % (Auto) 4.4 H (2-4) % Baso % (Auto) 0.4 (0-2) % Neut # (Auto) 3900 (4558-8829) /uL Lymph # (Auto) 2300 (9829-7006) /uL [place] # (Auto) 500 (0-900) /uL Eos # (Auto) 300 (0-450) /uL Baso # (Auto) 0 (0-100) /uL Sodium 140 (137-145) mmol/L Potassium 4.1 (3.4-5.1) mmol/L Chloride 106 (98-107) mmol/L Carbon Dioxide 30 (22-32) mmol/L BUN 11 (7-17) mg/dL Creatinine 0.69 (0.52-1.04) mg/dL Estimated GFR > 60.0 (>60) mL/min BUN/Creatinine Ratio 15.9 (6-22) Glucose 110 H (70-100) mg/dL Lactate (0.7-2.1) mmol/L Calcium 9.4 (8.4-10.2) mg/dL Total Bilirubin 0.3 (0.2-1.3) mg/dL AST 44 H (14-36) IU/L ALT 44 H (<35) IU/L Alkaline Phosphatase 115 (38-126) U/L NT-Pro-B Natriuret Pep 275 H (<125) pg/mL Total Protein 7.4 (6.3-8.2) g/dL Albumin 4.1 (3.5-5.0) g/dL Globulin 3.3 (1.7-4.1) g/dL Albumin/Globulin Ratio 1.2 (1.0-2.8) Procalcitonin < 0.05 (<0.5) ng/mL 14/20 Range/Units 12:15 WBC (4.5-11.0) X10^3/uL RBC (4.0-5.2) X10^6/uL Hgb (12.0-16.0) g/dL Hct (36-46) % MCV (80-100) fL MCH (26-34) PG MCHC (30-36) % RDW (11.6-14.8) % Plt Count (150-400) X10^3/uL Neut % (Auto) (50-75) % Lymph % (Auto) (25-40) % [place] % (Auto) (3-14) % Eos % (Auto) (2-4) % Baso % (Auto) (0-2) % Neut # (Auto) (9409-0445) /uL Lymph # (Auto) (7489-8492) /uL [place] # (Auto) (0-900) /uL Eos # (Auto) (0-450) /uL Baso # (Auto) (0-100) /uL Sodium (137-145) mmol/L Potassium (3.4-5.1) mmol/L Chloride (98-107) mmol/L Carbon Dioxide (22-32) mmol/L BUN (7-17) mg/dL Creatinine (0.52-1.04) mg/dL Estimated GFR (>60) mL/min BUN/Creatinine Ratio (6-22) Glucose (70-100) mg/dL Lactate 0.9 (0.7-2.1) mmol/L Calcium (8.4-10.2) mg/dL Total Bilirubin (0.2-1.3) mg/dL AST (14-36) IU/L ALT (<35) IU/L Alkaline Phosphatase (38-126) U/L NT-Pro-B Natriuret Pep (<125) pg/mL Total Protein (6.3-8.2) g/dL Albumin (3.5-5.0) g/dL Globulin (1.7-4.1) g/dL Albumin/Globulin Ratio (1.0-2.8) Procalcitonin (<0.5) ng/mL [facility] Narrative Medical decision making narrative: The patient is a 39-year-old female who presents with a chief complaint of a rash over bilateral lower legs. Labs are grossly within normal limits, no leukocytosis, negative lactate, no procalcitonin. This is very reassuring and helping rule out cellulitis. Given her exam, I believe that she has a component of venous stasis dermatitis or other dermatitis. She does have a history of this rash that comes and goes, but she is not exactly sure what it is or what medication she uses I discussed at length use of steroids, hydroxyzine for itching, refraining from scratching it, keeping skin hydrated. Discussed at length coming back to ER for any acute concerns, monitoring for fever etcetera. Patient states she will follow up with primary care provider in the next few days. Patient has no questions or concerns upon discharge and states understanding of return precautions as well as follow-up care. <Holly Bazzi, DO - Last Filed: 03/23/20 07:35> Lab Data Labs: Lab Results 03/22/20 03/22/20 03/22/20 Range/Units 12:15 12:15 12:15 WBC 7.1 (4.5-11.0) X10^3/uL RBC 4.37 (4.0-5.2) X10^6/uL Hgb 12.9 (12.0-16.0) g/dL Hct 38.1 (36-46) % MCV 87.2 (80-100) fL MCH 29.6 (26-34) PG MCHC 34.0 (30-36) % RDW 13.4 (11.6-14.8) % Plt Count 356 (150-400) X10^3/uL Neut % (Auto) 55.6 (50-75) % Lymph % (Auto) 33.2 (25-40) % [place] % (Auto) 6.4 (3-14) % Eos % (Auto) 4.4 H (2-4) % Baso % (Auto) 0.4 (0-2) % Neut # (Auto) 3900 (2717-7613) /uL Lymph # (Auto) 2300 (0486-3846) /uL [place] # (Auto) 500 (0-900) /uL Eos # (Auto) 300 (0-450) /uL Baso # (Auto) 0 (0-100) /uL Sodium 140 (137-145) mmol/L Potassium 4.1 (3.4-5.1) mmol/L Chloride 106 (98-107) mmol/L Carbon Dioxide 30 (22-32) mmol/L BUN 11 (7-17) mg/dL Creatinine 0.69 (0.52-1.04) mg/dL Estimated GFR > 60.0 (>60) mL/min BUN/Creatinine Ratio 15.9 (6-22) Glucose 110 H (70-100) mg/dL Lactate (0.7-2.1) mmol/L Calcium 9.4 (8.4-10.2) mg/dL Total Bilirubin 0.3 (0.2-1.3) mg/dL AST 44 H (14-36) IU/L ALT 44 H (<35) IU/L Alkaline Phosphatase 115 (38-126) U/L NT-Pro-B Natriuret Pep 275 H (<125) pg/mL Total Protein 7.4 (6.3-8.2) g/dL Albumin 4.1 (3.5-5.0) g/dL Globulin 3.3 (1.7-4.1) g/dL Albumin/Globulin Ratio 1.2 (1.0-2.8) Procalcitonin < 0.05 (<0.5) ng/mL 03/22/ Range/Units 12:15 WBC (4.5-11.0) X10^3/uL RBC (4.0-5.2) X10^6/uL Hgb (12.0-16.0) g/dL Hct (36-46) % MCV (80-100) fL MCH (26-34) PG MCHC (30-36) % RDW (11.6-14.8) % Plt Count (150-400) X10^3/uL Neut % (Auto) (50-75) % Lymph % (Auto) (25-40) % [place] % (Auto) (3-14) % Eos % (Auto) (2-4) % Baso % (Auto) (0-2) % Neut # (Auto) (4418-6219) /uL Lymph # (Auto) (6074-5606) /uL [place] # (Auto) (0-900) /uL Eos # (Auto) (0-450) /uL Baso # (Auto) (0-100) /uL Sodium (137-145) mmol/L Potassium (3.4-5.1) mmol/L Chloride (98-107) mmol/L Carbon Dioxide (22-32) mmol/L BUN (7-17) mg/dL Creatinine (0.52-1.04) mg/dL Estimated GFR (>60) mL/min BUN/Creatinine Ratio (6-22) Glucose (70-100) mg/dL Lactate 0.9 (0.7-2.1) mmol/L Calcium (8.4-10.2) mg/dL Total Bilirubin (0.2-1.3) mg/dL AST (14-36) IU/L ALT (<35) IU/L Alkaline Phosphatase (38-126) U/L NT-Pro-B Natriuret Pep (<125) pg/mL Total Protein (6.3-8.2) g/dL Albumin (3.5-5.0) g/dL Globulin (1.7-4.1) g/dL Albumin/Globulin Ratio (1.0-2.8) Procalcitonin (<0.5) ng/mL Discharge Plan Departure Patient Disposition: Home Clinical Impression: Dermatitis Discharge Date/Time: 03/22/20 14:44 Instructions: DI for Contact Dermatitis, DI for Atopic Dermatitis-Adult Activity Restrictions/Additional Instructions: Thank you for trusting us with your care today. As discussed, I sent 2 prescriptions to [facility] in [place]. Do not combine the hydroxyzine with Benadryl. Be aware it can be sedating. Do not combine it with anything else sedating. As discussed, please follow-up with primary care provider in the next few days. Please come back to the emergency department for any acute concerns such as inability keep down fluids, high fevers, etcetera. Prescriptions: New prednisone 20 mg tablet 40 mg PO DAILY Qty: 10 RF: 0 hydroxyzine HCl 50 mg tablet 50 mg PO TID PRN (Reason: itching) Qty: 14 RF: 0 Referrals: Solange Zamudio DO [Primary Care Provider] - <Holly Bazzi DO - Last Filed: 03/23/20 07:35> [facility] Att[facility]: I was immediately available in the department for consultation. Documentation has been reviewed. I agree with assessment and plan.
== END 2020-03-22 14:44 | disposition home or self-care (01) ==
PROVIDERS: Emergency Provider Nurse Practitioner Family; PCP Family Medicine
DX: L30.9 Dermatitis, unspecified (principal)
CPT/HCPCS: 36415; 80053; 83605; 83880; 84145; 85025; 87070; 87077; 87147; 87186; 87205; 99283

== ENCOUNTER 2020-05-15 14:13 | Observation (INO) | payer OTHER, SELFPAY ==
[2020-05-15] VITALS (19 sets, daily range): BP systolic 128–162; BP diastolic 64–87; PULSE 53–77; RESP 12–23; TEMP 36.4–37.1; O2SAT 94–100; BMI 33.8
--- NOTE | 2020-05-15 14:23 | DI.RAD.S_ITS ---
PROCEDURE: XR CHEST 1V INDICATIONS: chest pain TECHNIQUE: One view of the chest was acquired. COMPARISON: [facility], CR, XR CHEST 1V, 12/17/2018, 16:32. FINDINGS: Surgical changes and devices: None. Lungs and pleura: Lungs are clear. No pleural effusions or pneumothorax. Mediastinum: Mediastinal contours appear normal. Heart size is normal. Bones and chest wall: No suspicious bony lesions. Overlying soft tissues appear unremarkable. IMPRESSION: No evidence acute pulmonary process. Dictated by: Fadi Macedo M.D. on 05/15/2020 at 15:37 Approved by: Fadi Macedo M.D. on 05/15/2020 at 15:37
[2020-05-15 14:41] LABS: Add Manual Diff / Slide Review NO; Basophils Absolute Auto 0 /uL (0-100); Basophils Percent Auto 0.6 % (0-2); Eosinophils Absolute Auto 100 /uL (0-450); Eosinophils Percent Auto 0.8 % (2-4); Hematocrit 40.1 % (36-46); Hemoglobin 13.4 g/dL (12.0-16.0); Lymphocytes Absolute Auto 2900 /uL (1100-4500); Lymphocytes Percent Auto 40.3 % (25-40); Mean Corpuscular HGB Conc 33.5 % (30-36); Mean Corpuscular Hemoglobin 29.1 PG (26-34); Mean Corpuscular Volume 86.7 fL (80-100); Monocytes Absolute Auto 400 /uL (0-900); Monocytes Percent Auto 5.2 % (3-14); Neutrophils Absolute Auto 3800 /uL (1500-7000); Neutrophils Percent Auto 53.1 % (50-75); Platelet Count 345 X10^3/uL (150-400); Red Blood Cell Count 4.62 X10^6/uL (4.0-5.2); White Blood Cell Count 7.1 X10^3/uL (4.5-11.0)
[2020-05-15 14:50] LABS: Prothrombin Time 11.4 SECONDS (10.1-12.7)
[2020-05-15 14:53] LABS: PTT Partial Thromboplastin Tim 31 SECONDS (26.4-36.2)
[2020-05-15 14:57] LABS: Alanine Aminotransferase 98 IU/L (<35); Albumin 4.5 g/dL (3.5-5.0); Albumin Globulin Ratio 1.4 (1.0-2.8); Alkaline Phosphatase 105 U/L (38-126); Aspartate Aminotransferase 64 IU/L (14-36); BUN Creatinine Ratio 12.5 (6-22); Bilirubin Total 0.3 mg/dL (0.2-1.3); Blood Urea Nitrogen 9 mg/dL (7-17); Calcium 9.1 mg/dL (8.4-10.2); Carbon Dioxide 30 mmol/L (22-32); Chloride 104 mmol/L (98-107); Creatine Kinase 87 U/L (30-135); Estimated Glomerular Filt Rate > 60.0 mL/min (>60); Globulin 3.2 g/dL (1.7-4.1); Glucose 129 mg/dL (70-100); HEMOLYSIS < 15 (0-50); Lipase 82 U/L (23-300); Potassium 3.5 mmol/L (3.4-5.1); Sodium 138 mmol/L (137-145); Total Protein 7.7 g/dL (6.3-8.2)
[2020-05-15 15:08] LABS: Troponin I < 0.012 ng/mL (0.01-0.034)
[2020-05-15 15:35] LABS: Magnesium 1.8 mg/dL (1.6-2.3)
--- NOTE | 2020-05-15 15:39 | DI.CT.S_ITS ---
PROCEDURE: CT ANGIO CHEST PE PROTOCOL INDICATIONS: cp, sob, hx NE TECHNIQUE: After the administration of intravenous contrast, 2 mm thick sections acquired from the pulmonary apices to the posterior costophrenic angles. 3-dimensional maximum intensity projection (MIP) coronal and sagittal reformats were then acquired through the thorax. For radiation dose reduction, the following was used: automated exposure control, adjustment of mA and/or kV according to patient size. COMPARISON: [facility], CT, CT ANGIO CHEST PE PROTOCOL, 12/17/2018, 17:14. FINDINGS: Image quality: Excellent. Pulmonary arteries: Pulmonary arteries are normal in size, and demonstrate no intraluminal filling defects to suggest central pulmonary embolism. Lungs and pleura: Right middle lobe atelectasis. Lungs are otherwise clear. No pleural effusions or pneumothorax. Central and peripheral airways are patent. Mediastinum: Heart size is normal, without pericardial effusion. No mediastinal or hilar adenopathy. Thoracic aorta is normal in caliber and enhancement. Esophagus is normal in caliber. There is a tiny hiatal hernia. Bones and chest wall: No suspicious bony lesions. Ribs and thoracic spine appear intact throughout. Thyroid gland is normal. No axillary or supraclavicular adenopathy. Abdomen: Hepatic steatosis. Visualized upper abdominal solid organs appear normal in the early arterial phase of enhancement. IMPRESSION: 1. No evidence for pulmonary embolism. 2. Small hiatal hernia. 3. No pulmonary infiltrates. 4. Hepatic steatosis. Dictated by: Compa Sams M.D. on 05/15/2020 at 16:27 Approved by: Compa Sams M.D. on 05/15/2020 at 16:32
--- NOTE | 2020-05-15 15:44 | ED_ITS ---
HPI - Chest Pain <LONNIE Valdez - Last Filed: 05/15/20 16:29> General Chief Complaint: Chest Pain Stated Complaint: heart attack 1.5yrs ago, SOB, chest pain Time Seen by Provider: 05/15/20 14:31 Source: patient Mode of arrival: Ambulatory Limitations: no limitations History of Present Illness HPI narrative: The patient is a 39-year-old female current everyday smoker with history of MD with 2 stents approximately 1.5 years ago who presents with a chief complaint of general discomfort in the center of her chest radiating up to the left side of her jaw and down her left arm, general fatigue, dyspnea with exertion since Tuesday. She states that she feels as though she cannot even get dressed without feeling very tired. She does take several medications including Toprol XL, a statin, and Plavix. She states that she has not followed up with cardiology since or cardiac event as she was supposed to. Her universal grinder operator is Leti Tomas. She denies any fevers, but complains of general fatigue. She states that this started on Tuesday and she came in due to her boyfriend's urging today. Her primary care provider is Solange Zamudio. Related Data Home Medications Medication Instructions Recorded Confirmed aspirin 81 mg PO DAILY 05/15/20 05/15/20 atorvastatin 80 mg PO BEDTIME 05/15/20 05/15/20 clopidogrel 75 mg PO DAILY 05/15/20 05/15/20 metoprolol succinate [Toprol XL] 25 mg PO DAILY 05/15/20 05/15/20 Allergies Allergy/AdvReac Type Severity Reaction Status Date / Time codeine Allergy Verified 05/15/20 14:18 ibuprofen Allergy Verified 05/15/20 14:18 pregabalin [From Lyrica] Allergy Verified 05/15/20 14:18 zolpidem [From Ambien] Allergy Verified 05/15/20 14:18 Review of Systems <LONNIE Valdez - Last Filed: 05/15/20 16:29> Review of Systems Narrative: GENERAL: Denies chills, fatigue, malaise, fever, sweats. HEENT: Denies sinus pain, ear pain, sore throat, difficulty swallowing, dizziness. RESPIRATORY: See HPI CARDIOVASCULAR: See HPI GASTROINTESTINAL: Denies nausea, vomiting, abdominal pain, diarrhea, constipati on, melena. : Denies dysuria, frequency, incontinence, hematuria, urinary retention. MUSCULOSKELETAL: denies weakness, joint pain, or bony pain SKIN: Denies rash, skin lesions, or other NEUROLOGIC: Denies weakness, headache, numbness, change in speech, confusion, seizures, incoordination. PSYCHIATRIC: No concerning psychosocial issues. 12 point review of systems is negative except for those stated above Patient History <LONNIE Valdez - Last Filed: 05/15/20 16:29> Medical History (Updated 05/16/20 @ 01:03 by JERARDO Cooney) Chronic low back pain Coronary artery disease Current smoker Familial hypercholesterolemia NSTEMI (non-ST elevated myocardial infarction) Palpitations Surgical History (Updated 05/15/20 @ 23:54 by JERARDO Cooney) History of lumbar surgery History of vaginal hysterectomy Hx of heart artery stent Family History (Updated 05/15/20 @ 23:56 by JERARDO Cooney) Father Familial hypercholesterolemia Coronary artery disease Mother Cancer [place]'s thyroiditis Grandfather Coronary artery disease Social History household members: significant other Smoking Status: Current some day smoker alcohol intake: never Smoking Status: Current every day smoker alcohol intake frequency: holidays/special occasions only Substance Use Type: does not use Exam <PARISH Valdez-BC - Last Filed: 05/15/20 16:29> Narrative Exam Narrative: GENERAL: This is a well-nourished, well-developed patient, in no acute distress. HEAD: Atraumatic. Normocephalic. No temporal or scalp tenderness. EYES: Pupils equal round and reactive. Extraocular motions intact. No scleral icterus. No injection or drainage. ENT: Nose without bleeding, purulent drainage or septal hematoma. Wearing a mask Airway patent. NECK: Trachea midline. No JVD or lymphadenopathy. Supple, nontender, no meningeal signs. CARDIOVASCULAR: Regular rate and rhythm RESPIRATORY: Clear to auscultation. Breath sounds equal bilaterally. No wheezes, rales, or rhonchi. No cough. No increased respiratory effort. No accessory muscle use pain to palpation of left-sided costochondral joints, no pain to palpation anterior posterior chest wall compression or lateral chest wall compression GASTROINTESTINAL: Abdomen soft, non-tender, nondistended. No hepato- splenomegaly, or palpable masses. No guarding. Active bowel sounds all 4 qu adrants EXTREMITIES: No clubbing, cyanosis, or edema. No joint tenderness, effusion, or edema noted. BACK: Nontender without deformity or crepitance. No flank tenderness. NEURO: AOx3. SKIN: No rash or erythema. Initial Vital Signs Initial Vital Signs: Vital Signs Temperature 98.8 F 05/15/20 14:18 Pulse Rate 77 05/15/20 14:18 Respiratory Rate 15 05/15/20 14:18 Blood Pressure 138/87 05/15/20 14:18 Pulse Oximetry 100 05/15/20 14:18 <Tarah Angeles MD - Last Filed: 05/16/20 07:36> Initial Vital Signs Initial Vital Signs: Vital Signs Temperature 98.8 F 05/15/20 14:18 Pulse Rate 77 05/15/20 14:18 Respiratory Rate 15 05/15/20 14:18 Blood Pressure 138/87 05/15/20 14:18 Pulse Oximetry 100 05/15/20 14:18 Scores <LONNIE Valdez - Last Filed: 05/15/20 16:29> GCS Pankaj coma scale eye opening: Spontaneous [place] coma scale verbal response: Orientated Pankaj coma scale motor response: Obey commands Pankaj coma scale total score: 15 Course <ARVIND ValdezBC - Last Filed: 05/15/20 16:29> Orders Ordered: Acetaminophen (Acetaminophen 325 Mg Tablet) 650 mg PO Q6HR PRN PRN Reason: Fever/Mild Pain (1-3) Last Admin: 05/16/20 00:45 Dose: 650 mg Documented by: AIRAM Aspirin (Aspirin Ec 81 Mg Tablet) 81 mg PO DAILY [facility] Atorvastatin Calcium (Atorvastatin 20 Mg Tablet) 80 mg PO BEDTIME [facility] Last Admin: 05/15/20 22:50 Dose: 80 mg Documented by: NOREEN Calcium Carbonate (Calcium Carbonate 500 Mg Tab) 1,000 mg PO Q4HR PRN PRN Reason: Dyspepsia Clopidogrel Bisulfate (Clopidogrel 75 Mg Tablet) 75 mg PO DAILY [facility] Enoxaparin Sodium (Enoxaparin 40 Mg/0.4 Ml Syringe) 40 mg SUBCUT DAILY [facility] Sodium Chloride (Normal Saline 0.9%) 1,000 mls @ 75 mls/hr IV CONT [facility] Last Admin: 05/15/20 22:23 Dose: 75 mls/hr Documented by: NOREEN Lorazepam (Lorazepam 0.5 Mg Tablet) 0.5 mg PO BEDTIME PRN PRN Reason: Sleep Metoprolol Succinate (Metoprolol Er 25 Mg Tablet) 25 mg PO DAILY [facility] Morphine Sulfate (Morphine 2 Mg/Ml Inj) 2 mg IV Q5MIN PRN PRN Reason: Chest Pain Last Admin: 05/15/20 23:21 Dose: 2 mg Documented by: AIRAM Naloxone HCl (Naloxone 0.4 Mg/Ml Vial) 0.2 mg IV Q2MIN PRN PRN Reason: Opiate Reversal Naloxone HCl (Naloxone 0.4 Mg/Ml Vial) 0.2 mg IV Q2MIN PRN PRN Reason: Opiate Reversal Nitroglycerin (Nitroglycerin 0.4 Mg Sl Tab) 0.4 mg SL [id number] PRN PRN Reason: Chest Pain Ondansetron HCl (Ondansetron 4 Mg/2 Ml Inj) 4 mg IV Q8HR PRN PRN Reason: Nausea And Vomiting Pantoprazole Sodium (Pantoprazole 40 Mg Vial) 40 mg IV DAILY [facility] Discontinued Medications Atorvastatin Calcium (Atorvastatin 20 Mg Tablet) 20 mg PO BEDTIME [facility] Potassium Chloride 40 meq/ (Sodium Chloride) 520 mls @ 130 mls/hr IV NOW ONE Stop: 05/16/20 04:03 Last Infusion: 05/16/20 06:00 Dose: 0 mls/hr Documented by: AIRAM Cosigned by: JALEESA Admin: 05/16/20 00:46 Dose: 130 mls/hr Documented by: AIRAM Cosigned by: FARHAN Nitroglycerin (Nitroglycerin Oint 1 Inch/Gm Oint...G.) 1 inch TOP NOW ONE Stop: 05/15/20 23:33 Last Admin: 05/16/20 00:03 Dose: 1 inch Documented by: AIRAM Pantoprazole Sodium (Pantoprazole 40 Mg Vial) 40 mg IV NOW ONE Stop: 05/15/20 23:33 Last Admin: 05/16/20 00:04 Dose: 40 mg Documented by: AIRAM Vital Signs Vital signs: Vital Signs - 8 hr 05/15/20 14:18 05/15/20 15:06 05/15/20 15:30 Temperature 98.8 F Pulse Rate 77 63 68 Respiratory Rate 15 19 Blood Pressure 138/87 145/75 H Pulse Oximetry 100 97 97 05/15/20 15:31 05/15/20 16:00 05/15/20 16:30 Temperature Pulse Rate 60 61 67 Respiratory Rate 17 22 12 Blood Pressure 128/82 137/77 Pulse Oximetry 98 97 97 05/15/20 17:00 Temperature Pulse Rate 58 L Respiratory Rate 12 Blood Pressure Pulse Oximetry 96 <Tarah Angeles MD - Last Filed: 05/16/20 07:36> Course Course Narrative: Patient's care is assumed from Brittanie Chavez. 39-year-old woman with prior coronary issues presents with acute chest pain. Initial troponin and EKG are unremarkable. Second troponin is equally unremarkable. Patient will be admitted to our hospitalist service for serial enzymes and anticipated nuclear medicine stress test tomorrow. She is stable at this time and appropriate for transfer to the floor Orders Ordered: Acetaminophen (Acetaminophen 325 Mg Tablet) 650 mg PO Q6HR PRN PRN Reason: Fever/Mild Pain (1-3) Last Admin: 05/16/20 00:45 Dose: 650 mg Documented by: AIRAM Aspirin (Aspirin Ec 81 Mg Tablet) 81 mg PO DAILY [facility] Atorvastatin Calcium (Atorvastatin 20 Mg Tablet) 80 mg PO BEDTIME [facility] Last Admin: 05/15/20 22:50 Dose: 80 mg Documented by: NOREEN Calcium Carbonate (Calcium Carbonate 500 Mg Tab) 1,000 mg PO Q4HR PRN PRN Reason: Dyspepsia Clopidogrel Bisulfate (Clopidogrel 75 Mg Tablet) 75 mg PO DAILY [facility] Enoxaparin Sodium (Enoxaparin 40 Mg/0.4 Ml Syringe) 40 mg SUBCUT DAILY [facility] Sodium Chloride (Normal Saline 0.9%) 1,000 mls @ 75 mls/hr IV CONT [facility] Last Admin: 05/15/20 22:23 Dose: 75 mls/hr Documented by: NOREEN Lorazepam (Lorazepam 0.5 Mg Tablet) 0.5 mg PO BEDTIME PRN PRN Reason: Sleep Metoprolol Succinate (Metoprolol Er 25 Mg Tablet) 25 mg PO DAILY [facility] Morphine Sulfate (Morphine 2 Mg/Ml Inj) 2 mg IV Q5MIN PRN PRN Reason: Chest Pain Last Admin: 05/15/20 23:21 Dose: 2 mg Documented by: AIRAM Naloxone HCl (Naloxone 0.4 Mg/Ml Vial) 0.2 mg IV Q2MIN PRN PRN Reason: Opiate Reversal Naloxone HCl (Naloxone 0.4 Mg/Ml Vial) 0.2 mg IV Q2MIN PRN PRN Reason: Opiate Reversal Nitroglycerin (Nitroglycerin 0.4 Mg Sl Tab) 0.4 mg SL [id number] PRN PRN Reason: Chest Pain Ondansetron HCl (Ondansetron 4 Mg/2 Ml Inj) 4 mg IV Q8HR PRN PRN Reason: Nausea And Vomiting Pantoprazole Sodium (Pantoprazole 40 Mg Vial) 40 mg IV DAILY [facility] Discontinued Medications Atorvastatin Calcium (Atorvastatin 20 Mg Tablet) 20 mg PO BEDTIME [facility] Potassium Chloride 40 meq/ (Sodium Chloride) 520 mls @ 130 mls/hr IV NOW ONE Stop: 05/16/20 04:03 Last Infusion: 05/16/20 06:00 Dose: 0 mls/hr Documented by: AIRAM Cosigned by: JALEESA Admin: 05/16/20 00:46 Dose: 130 mls/hr Documented by: AIRAM Cosigned by: FARHAN Nitroglycerin (Nitroglycerin Oint 1 Inch/Gm Oint...G.) 1 inch TOP NOW ONE Stop: 05/15/20 23:33 Last Admin: 05/16/20 00:03 Dose: 1 inch Documented by: AIRAM Pantoprazole Sodium (Pantoprazole 40 Mg Vial) 40 mg IV NOW ONE Stop: 05/15/20 23:33 Last Admin: 05/16/20 00:04 Dose: 40 mg Documented by: AIRAM Vital Signs Vital signs: Vital Signs - 8 hr 05/15/20 14:18 05/15/20 15:06 05/15/20 15:30 Temperature 98.8 F Pulse Rate 77 63 68 Respiratory Rate 15 19 Blood Pressure 138/87 145/75 H Pulse Oximetry 100 97 97 05/15/20 15:31 05/15/20 16:00 05/15/20 16:30 Temperature Pulse Rate 60 61 67 Respiratory Rate 17 22 12 Blood Pressure 128/82 137/77 Pulse Oximetry 98 97 97 05/15/20 17:00 Temperature Pulse Rate 58 L Respiratory Rate 12 Blood Pressure Pulse Oximetry 96 MDM - Chest Pain <Brittanie Lagos, WORKPLACE REHABILITATION OFFICER-BC - Last Filed: 05/15/20 16:29> Lab Data Attestation: I reviewed the patient's lab results. Result diagrams: 05/16/20 05:40 05/16/20 05:40 Labs: Lab Results 05/15/20 05/15/20 05/15/20 Range/Units 14:27 14:27 14:27 WBC 7.1 (4.5-11.0) X10^3/uL RBC 4.62 (4.0-5.2) X10^6/uL Hgb 13.4 (12.0-16.0) g/dL Hct 40.1 (36-46) % MCV 86.7 (80-100) fL MCH 29.1 (26-34) PG MCHC 33.5 (30-36) % RDW 14.0 (11.6-14.8) % Plt Count 345 (150-400) X10^3/uL Neut % (Auto) 53.1 (50-75) % Lymph % (Auto) 40.3 H (25-40) % Angelina % (Auto) 5.2 (3-14) % Eos % (Auto) 0.8 L (2-4) % Baso % (Auto) 0.6 (0-2) % Neut # (Auto) 3800 (2241-6273) /uL Lymph # (Auto) 2900 (4965-9853) /uL Angelina # (Auto) 400 (0-900) /uL Eos # (Auto) 100 (0-450) /uL Baso # (Auto) 0 (0-100) /uL PT 11.4 (10.1-12.7) SECONDS INR 1.0 (0.9-1.3) APTT 31 (26.4-36.2) SECONDS Sodium 138 (137-145) mmol/L Potassium 3.5 (3.4-5.1) mmol/L Chloride 104 (98-107) mmol/L Carbon Dioxide 30 (22-32) mmol/L BUN 9 (7-17) mg/dL Creatinine 0.72 (0.52-1.04) mg/dL Estimated GFR > 60.0 (>60) mL/min BUN/Creatinine Ratio 12.5 (6-22) Glucose 129 H (70-100) mg/dL Calcium 9.1 (8.4-10.2) mg/dL Magnesium (1.6-2.3) mg/dL Total Bilirubin 0.3 (0.2-1.3) mg/dL AST 64 H (14-36) IU/L ALT 98 H (<35) IU/L Alkaline Phosphatase 105 (38-126) U/L Total Creatine Kinase 87 (30-135) U/L CK-MB (CK-2) TNP CK-MB (CK-2) Rel Index TNP Troponin I < 0.012 (0.01-0.034) ng/mL NT-Pro-B Natriuret Pep (<125) pg/mL Total Protein 7.7 (6.3-8.2) g/dL Albumin 4.5 (3.5-5.0) g/dL Globulin 3.2 (1.7-4.1) g/dL Albumin/Globulin Ratio 1.4 (1.0-2.8) Lipase 82 (23-300) U/L SARS-CoV-2 (PCR) (Negative) 05/15/20 05/15/20 05/15/20 Range/Units 14:27 15:33 16:28 WBC (4.5-11.0) X10^3/uL RBC (4.0-5.2) X10^6/uL Hgb (12.0-16.0) g/dL Hct (36-46) % MCV (80-100) fL MCH (26-34) PG MCHC (30-36) % RDW (11.6-14.8) % Plt Count (150-400) X10^3/uL Neut % (Auto) (50-75) % Lymph % (Auto) (25-40) % Angelina % (Auto) (3-14) % Eos % (Auto) (2-4) % Baso % (Auto) (0-2) % Neut # (Auto) (0663-8382) /uL Lymph # (Auto) (4190-3404) /uL Angelina # (Auto) (0-900) /uL Eos # (Auto) (0-450) /uL Baso # (Auto) (0-100) /uL PT (10.1-12.7) SECONDS INR (0.9-1.3) APTT (26.4-36.2) SECONDS Sodium (137-145) mmol/L Potassium (3.4-5.1) mmol/L Chloride (98-107) mmol/L Carbon Dioxide (22-32) mmol/L BUN (7-17) mg/dL Creatinine (0.52-1.04) mg/dL Estimated GFR (>60) mL/min BUN/Creatinine Ratio (6-22) Glucose (70-100) mg/dL Calcium (8.4-10.2) mg/dL Magnesium 1.8 (1.6-2.3) mg/dL Total Bilirubin (0.2-1.3) mg/dL AST (14-36) IU/L ALT (<35) IU/L Alkaline Phosphatase (38-126) U/L Total Creatine Kinase 88 (30-135) U/L CK-MB (CK-2) TNP CK-MB (CK-2) Rel Index TNP Troponin I < 0.012 (0.01-0.034) ng/mL NT-Pro-B Natriuret Pep 143 H (<125) pg/mL Total Protein (6.3-8.2) g/dL Albumin (3.5-5.0) g/dL Globulin (1.7-4.1) g/dL Albumin/Globulin Ratio (1.0-2.8) Lipase (23-300) U/L SARS-CoV-2 (PCR) Negative (Negative) Imaging Data Chest x-ray: Radiologist's Impression: [address] [id number] ReportSigned Patient: Daphne Connelly R#: [id number]: 1980Acct:[id number]/Sex: 39 / FDate of Service: 05/15/20Loc: EDAccession Number: [id number] Procedure: XR chest 1V Ordering Provider: Tarah Angeles MD PROCEDURE: XR CHEST 1V INDICATIONS: chest pain TECHNIQUE: One view of the chest was acquired. COMPARISON: [facility], , XR CHEST 1V, 12/17/2018, 16:32. FINDINGS: Surgical changes and devices: None. Lungs and pleura: Lungs are clear. No pleural effusions or pneumothorax. Mediastinum: Mediastinal contours appear normal. Heart size is normal. Bones and chest wall: No suspicious bony lesions. Overlying soft tissues appear unremarkable. IMPRESSION: No evidence acute pulmonary process. Dictated by: Fadi Macedo M.D. on 05/15/2020 at 15:37 Approved by: Fadi Macedo M.D. on 05/15/2020 at 15:37 ECG Data Attestation: I personally reviewed and interpreted this ECG as follows: Interpretation: Sinus rhythm. Ventricular rate 73. P.r. interval 146. QRS 80. Viewed by Dr Angeles [facility] Narrative Medical decision making narrative: The patient is a 39-year-old female with history of acute coronary syndrome who presents with a chief complaint of left- sided chest pain arm pain and jaw pain. She took a nitroglycerin this morning. Initial EKG has no acute findings, initial troponin is negative here and a given her significant history and presentation of chest pain and shortness of breath, CT was taken to help rule out pulmonary embolism. Spoke with Dr. Chavez from [facility], he suggest doing a rule out on this patient given her history and lack of follow-up with Cardiology. I am in accordance with this plan. Will obtain 2nd troponin, if negative, will try to admit here at [facility] for a stress test. If positive will plan on transferring patient to [facility]. Patient signed out to Dr. Angeles with CT scan and 2nd troponin pending at 16:30. Patient states understanding of plan. <Tarah Angeles MD - Last Filed: 05/16/20 07:36> Lab Data Labs: Lab Results 05/15/20 05/15/20 05/15/20 Range/Units 14:27 14:27 14:27 WBC 7.1 (4.5-11.0) X10^3/uL RBC 4.62 (4.0-5.2) X10^6/uL Hgb 13.4 (12.0-16.0) g/dL Hct 40.1 (36-46) % MCV 86.7 (80-100) fL MCH 29.1 (26-34) PG MCHC 33.5 (30-36) % RDW 14.0 (11.6-14.8) % Plt Count 345 (150-400) X10^3/uL Neut % (Auto) 53.1 (50-75) % Lymph % (Auto) 40.3 H (25-40) % Angelina % (Auto) 5.2 (3-14) % Eos % (Auto) 0.8 L (2-4) % Baso % (Auto) 0.6 (0-2) % Neut # (Auto) 3800 (5054-9788) /uL Lymph # (Auto) 2900 (1057-1659) /uL Angelina # (Auto) 400 (0-900) /uL Eos # (Auto) 100 (0-450) /uL Baso # (Auto) 0 (0-100) /uL PT 11.4 (10.1-12.7) SECONDS INR 1.0 (0.9-1.3) APTT 31 (26.4-36.2) SECONDS Sodium 138 (137-145) mmol/L Potassium 3.5 (3.4-5.1) mmol/L Chloride 104 (98-107) mmol/L Carbon Dioxide 30 (22-32) mmol/L BUN 9 (7-17) mg/dL Creatinine 0.72 (0.52-1.04) mg/dL Estimated GFR > 60.0 (>60) mL/min BUN/Creatinine Ratio 12.5 (6-22) Glucose 129 H (70-100) mg/dL Calcium 9.1 (8.4-10.2) mg/dL Magnesium (1.6-2.3) mg/dL Total Bilirubin 0.3 (0.2-1.3) mg/dL AST 64 H (14-36) IU/L ALT 98 H (<35) IU/L Alkaline Phosphatase 105 (38-126) U/L Total Creatine Kinase 87 (30-135) U/L CK-MB (CK-2) TNP CK-MB (CK-2) Rel Index TNP Troponin I < 0.012 (0.01-0.034) ng/mL NT-Pro-B Natriuret Pep (<125) pg/mL Total Protein 7.7 (6.3-8.2) g/dL Albumin 4.5 (3.5-5.0) g/dL Globulin 3.2 (1.7-4.1) g/dL Albumin/Globulin Ratio 1.4 (1.0-2.8) Lipase 82 (23-300) U/L SARS-CoV-2 (PCR) (Negative) 05/15/20 05/15/20 05/15/20 Range/Units 14:27 15:33 16:28 WBC (4.5-11.0) X10^3/uL RBC (4.0-5.2) X10^6/uL Hgb (12.0-16.0) g/dL Hct (36-46) % MCV (80-100) fL MCH (26-34) PG MCHC (30-36) % RDW (11.6-14.8) % Plt Count (150-400) X10^3/uL Neut % (Auto) (50-75) % Lymph % (Auto) (25-40) % Angelina % (Auto) (3-14) % Eos % (Auto) (2-4) % Baso % (Auto) (0-2) % Neut # (Auto) (2663-1614) /uL Lymph # (Auto) (5485-9885) /uL Angelina # (Auto) (0-900) /uL Eos # (Auto) (0-450) /uL Baso # (Auto) (0-100) /uL PT (10.1-12.7) SECONDS INR (0.9-1.3) APTT (26.4-36.2) SECONDS Sodium (137-145) mmol/L Potassium (3.4-5.1) mmol/L Chloride (98-107) mmol/L Carbon Dioxide (22-32) mmol/L BUN (7-17) mg/dL Creatinine (0.52-1.04) mg/dL Estimated GFR (>60) mL/min BUN/Creatinine Ratio (6-22) Glucose (70-100) mg/dL Calcium (8.4-10.2) mg/dL Magnesium 1.8 (1.6-2.3) mg/dL Total Bilirubin (0.2-1.3) mg/dL AST (14-36) IU/L ALT (<35) IU/L Alkaline Phosphatase (38-126) U/L Total Creatine Kinase 88 (30-135) U/L CK-MB (CK-2) TNP CK-MB (CK-2) Rel Index TNP Troponin I < 0.012 (0.01-0.034) ng/mL NT-Pro-B Natriuret Pep 143 H (<125) pg/mL Total Protein (6.3-8.2) g/dL Albumin (3.5-5.0) g/dL Globulin (1.7-4.1) g/dL Albumin/Globulin Ratio (1.0-2.8) Lipase (23-300) U/L SARS-CoV-2 (PCR) Negative (Negative) Discharge Plan Departure Patient Disposition: Admitted as Observation Clinical Impression: Chest pain Qualifiers: Chest pain type: unspecified Qualified Code(s): R07.9 - Chest pain, unspecified Admit Date/Time: 05/15/20 21:15 Admit Provider: Miguel Holt
[2020-05-15 15:45] LABS: NT-proBNP (BNP-Adult 18+) 143 pg/mL (<125)
[2020-05-15 15:57] LABS: COVID19 -Nasal RAPID Negative (Negative)
[2020-05-15 16:49] LABS: Creatine Kinase 88 U/L (30-135)
[2020-05-15 17:02] LABS: Troponin I < 0.012 ng/mL (0.01-0.034)
--- NOTE | 2020-05-15 21:25 | DI.NM.S_ITS ---
PROCEDURE: NM LOGAN PERF SPECT R&S PHARM Rest and pharmacological stress myocardial perfusion SPECT with gated imaging and ejection fraction RADIOPHARMACEUTICAL: 11.9 mCi Tc-99m tetrafosmin IV at rest and 25.0 mCi Tc-99m tetrafosmin IV at peak effect of pharmacological stress. [id number] was performed. INDICATIONS: Recurrent chest pain history CAD with stent TECHNIQUE: Radiopharmaceutical was injected at peak stress test, and also at rest. SPECT images were obtained. SPECT myocardial perfusion images were displayed in short axis, horizontal long axis, and vertical long axis views. Gated images were reviewed using [employer] software. COMPARISON: None. CARDIAC STRESS: A pharmacologic stress test was performed under the supervision of an attending staff, using an infusion of lexiscan 0.4mg IV X1. Hemodynamic data: There is normal blood pressure and heart rate response to pharmacologic stress. Symptoms: The patient had non-dagnostic chest pain with lexiscan Aminophylline: none EKG: No diagnostic changes of ischemia; no ectopy. FINDINGS: Raw data: There is good myocardial uptake of radiotracer. No significant motion artifacts. Pgxv-aq-llyro ratio is 0.35 (normal is less than 0.38 for tetrafosmin tracer). Left ventricle function: Gated images demonstrate normal left ventricular wall thickening. No segmental wall motion abnormalities. No transient ischemic dilation; TID is 1.05 (normal less than 1.3). Left ventricle resting end diastolic volume is 117 mL. Left ventricle stress ejection fraction is 70%; normal range is above 45%. Myocardial perfusion: There is normal distribution of activity in the right and left ventricular myocardium. No fixed or reversible perfusion defects. IMPRESSION: low risk, normal pharmaceuticdal nuclear stress test 1) No perfusion evidence of ischemia or infarction. 2) Normal left ventricular size, wall motion, and systolic function (EF post stress 70%). 3) No ECG evidene of ischemia. 4) Non-diagnostic chest pain with lexiscan. 5) Severely reduced exercise tolerance (4.6 METs). Only 57% of maximumm predicted heart rate achieved (stopped stopped due to patient request). Study switched from treadmill to pharmaceutical nuclear stress test. 6) No prior nuclear stress test available for comparison. Dictated by: Rhett Chavez MD on 05/16/2020 at 17:19 Approved by: Rhett Chavez MD on 05/16/2020 at 17:22
--- NOTE | 2020-05-15 21:26 | DI.ECHO.S_ITS ---
[facility] +---------+ : : [address] : : : : [id number] : : : : Phone: [phone]+ Echocardiogram Report + + :Name: ZARINA VELASCO Study Date: 05/16/2020 Height: 62 in : :[facility] Weight: 185 lb : : Gender: Female BSA: 1.8 m2 : :: 1980 Age: 39 yrs BP: 137/76 mmHg: :Reason For Study: CP : : Performed By: Elias Smith : :Referring: CHANELL THOMAS : + + Interpretation Summary Left ventricular ejection fraction is estimated to be 55%. There is basal inferoseptal wall hypokinesis. Mild mid anteroseptal hypokinesis. Overall wall motion abnormality seems to have improved since her last echo. There is no significant valvular heart disease. Procedure: A two-dimensional transthoracic echocardiogram with color flow and Doppler was performed. The study quality was technically adequate. Comparison is made with the echocardiogram of 12/18/18. The patient was in normal sinus rhythm during the exam. Left Ventricle: The left ventricle is normal in size. There is normal left ventricular wall thickness. Left ventricular ejection fraction is estimated to be 55%. There is basal inferoseptal wall hypokinesis. Mild mid anteroseptal hypokinesis. Overall wall motion abnormality seems to have improved since her last echo. Right Ventricle: The right ventricle is normal in size and function. Atria: Both atria are normal in size. Mitral Valve: The mitral valve is normal in structure and function. There is no mitral regurgitation. Aortic Valve: The aortic valve is trileaflet. The aortic valve opens well. No aortic regurgitation is present. Tricuspid Valve: The tricuspid valve is normal in structure and function. No tricuspid regurgitation. Pulmonic Valve: The pulmonic valve is not well seen, but is grossly normal. There is no pulmonic valvular regurgitation. Great Vessels: The aortic root is normal size. The dimensions of the ascending aorta are normal. The pulmonary artery is normal size. The IVC is of normal diameter and collapses greater than 50% with a sniff. This suggests a low right atrial pressure of 3 mm Hg. Pericardium/ Pleura There is no pericardial effusion. There is no pleural effusion. MMode/2D Measurements & Calculations LVIDd: 4.6 cm LVOT diam: 2.0 cm LVIDs: 3.3 cm Ao root diam: 2.7 cm FS: 28.0 % asc Aorta Diam: 3.3 cm EPSS: 0.64 cm Ao Arch Diam (Prox Trans): 2.3 cm IVSd: 0.74 cm LVPWd: 0.84 cm LV tubbs. diameter/BSA (cm/m^2): 2.5 LV sys. diameter/BSA (cm/m^2): 1.8 LA dimension: 3.3 cm RA long axis: 4.0 cm LA A2 area: 16.6 cm2 RA area: 14.0 cm2 LA A4 area: 18.2 cm2 RA vol: 41.8 ml LA length (vol): 5.4 cm RA : 22.6 ml/m2 LA vol: 47.7 ml IVC diam: 1.5 cm LA vol index: 25.8 ml/m2 Doppler Measurements & Calculations Ao V2 max: 167.4 cm/sec LVOT Max Jose Alberto: 118.9 cm/sec Ao V2 mean: 127.8 cm/sec LV V1 max P.7 mmHg Ao max P.2 mmHg LV V1 VTI: 31.2 cm Ao mean P.0 mmHg LEO(I,D): 2.4 cm2 Ao V2 VTI: 43.3 cm LEO(V,D): 2.3 cm2 sev ratio: 0.72 LEO indexed to BSA (cm^2/m^2): 1.3 MV E max jose alberto: 101.4 cm/sec PA V2 max: 93.6 cm/sec MV A max jose alberto: 77.7 cm/sec PA V2 mean: 70.0 cm/sec MV E/A: 1.3 PA mean P.1 mmHg Med Peak E' Jose Alberto: 7.3 cm/sec PA pr(Accel): 27.6 mmHg E/E' med: 14.0 Lat Peak E' Jose Alberto: 9.5 cm/sec E/E' lat: 10.7 E/e' average: 12.3 MV dec time: 0.20 sec SV(LVOT): 102.2 ml Reading Physician:11:51 AM
[2020-05-15] MEDS: SODIUM CHLORIDE 0.9% 1,000 ML 75 ML IV (22:23)
--- NOTE | 2020-05-15 22:24 | PM.HP.1 ---
History of Present Illness History of Present Illness Date Patient Seen: 05/15/20 Time Patient Seen: 22:00 Chief complaint: heart attack 1.5yrs ago, SOB, chest pain Narrative: Ms. Daphne Connelly is a 39-year-old female was a current smoker and has a past medical history significant for coronary artery disease, NSTEMI status post stenting x2 (2019), history of palpitations, familial hypercholesterolemia chronic lumbar back pain status post back surgery x2 who presents to the ER with chest pain, palpitations and dyspnea. The patient states that her symptoms began on Tuesday when she ?just felt off? and woke Tuesday with chest discomfort and took the day off. She has had progressive weakness in general fatigue with progressive exertional dyspnea. She reports having history of palpitations however today she felt marked fluttering and pressure that she describes would take her breath away. Her chest pain she describes as left chest heaviness ache as 7/10 radiating into the left jaw and left arm that was nonpleuritic. She took a nitro this morning for her discomfort without improvement after which she did have a headache. Patient was seen at [facility] on 12/17/2018 for similar complaints and on evaluations found to have an elevated troponin is 0.625 prompting transfer to [facility] for further treatment where the patient received 2 stents under the care of Dr. Villegas with whom she has not followed up since. The patient denies recent illness cold or flu symptoms and has had no fevers or chills. 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 She denies headaches except for after nitro, has no dizziness nasal congestion or sore throat. She has chest pain and shortness of breath as above describing becoming dyspneic walking across the parking lot to the ER entrance. She has had no epigastric or abdominal pain and denies nausea or vomiting, diarrhea or constipation. She reports no urinary symptoms of urgency frequency or burning. The patient has chronic low back pain left greater than right describing intermittent numbness to the lower extremities. Upon arrival to the ER the patient has a temperature of 98.8?, heart rate of 77, blood pressure 138/87, respirations 15 saturating 100% on room air. EKG is obtained finding a sinus rhythm at 72 without ectopy or block, inverted T-waves in lead 3 with flat T-waves in AVF and Q-waves lead 3 and AVF. Chest x-ray obtained finds no acute cardiopulmonary processes. CT angiogram is negative for PE makes note of small hiatal hernia and hepatic steatosis. On laboratory analysis the patient has a white count of 7.1, hemoglobin of 13.4, hematocrit 40.1 and platelets of 347. Her coagulation studies within normal limits under chemistries is notable for potassium of 3.5 and magnesium of 1.8 with a BUN of 9 and creatinine 0.72. Her nonfasting glucose is 129. Total bilirubin is 0.3 with an elevated AST at 64 and a L T at 98? with alkaline phosphatase 1 5. Her total CK is 88 and her troponin is less than 0.012 x 2, proBNP is 143. While in the ER, Dr. Chavez was consulted who recommended admitting the patient for rule out ACS considering her symptoms and lack of follow-up. The patient is admitted to the hospitalist service for chest pain rule out ACS. PCP: Dr. Marjan Dietz Patient History Medical History (Updated 05/16/20 @ 01:03 by JERARDO Cooney) Chronic low back pain Coronary artery disease Current smoker Familial hypercholesterolemia NSTEMI (non-ST elevated myocardial infarction) Palpitations Surgical History (Updated 05/15/20 @ 23:54 by JERARDO Cooney) History of lumbar surgery History of vaginal hysterectomy Hx of heart artery stent Family & Social History Family History (Updated 05/15/20 @ 23:56 by JERARDO Cooney) Father Familial hypercholesterolemia Coronary artery disease Mother Cancer [place]'s thyroiditis Grandfather Coronary artery disease Social History: household members significant other Prior Living Arrangements House Safety & Behavioral: Feels Safe in Current Yes Environment Been Physically Hurt or No Threatened By a Person Suicidal Ideation Description None Suicide Plan Description No Plan Tobacco & Substance use: Smoking Status Current some day smoker alcohol intake never alcohol intake frequency holiday/special occasion Substance Use Type marijuana Meds Home Medications and Allergies Home Medications Medication Instructions Recorded Confirmed Type aspirin 81 mg PO DAILY 05/15/20 05/15/20 History atorvastatin 80 mg PO BEDTIME 05/15/20 05/15/20 History clopidogrel 75 mg PO DAILY 05/15/20 05/15/20 History metoprolol succinate [Toprol XL] 25 mg PO DAILY 05/15/20 05/15/20 History Allergies Allergy/AdvReac Type Severity Reaction Status Date / Time codeine Allergy Verified 05/15/20 14:18 ibuprofen Allergy Verified 05/15/20 14:18 pregabalin [From Lyrica] Allergy Verified 05/15/20 14:18 zolpidem [From Ambien] Allergy Verified 05/15/20 14:18 Review of Systems Review of Systems ROS: Yes All systems reviewed with the patient and are negative except as otherwise documented Exam Vital Signs (past 8 hours): - 05/15/20 15:30 05/15/20 15:31 05/15/20 16:00 Temperature Pulse Rate 68 60 61 Respiratory Rate 19 17 22 Blood Pressure 128/82 137/77 Pulse Oximetry 97 98 97 05/15/20 16:30 05/15/20 17:00 05/15/20 17:30 Temperature Pulse Rate 67 58 L 65 Respiratory Rate 12 12 19 Blood Pressure Pulse Oximetry 97 96 98 05/15/20 17:47 05/15/20 18:00 05/15/20 18:30 Temperature Pulse Rate 74 67 60 Respiratory Rate 15 23 16 Blood Pressure Pulse Oximetry 99 98 98 05/15/20 18:31 05/15/20 18:38 05/15/20 19:00 Temperature Pulse Rate 60 58 L 53 L Respiratory Rate 15 12 18 Blood Pressure 162/67 H 156/70 H Pulse Oximetry 99 94 97 05/15/20 19:30 05/15/20 19:31 05/15/20 20:00 Temperature Pulse Rate 55 L 56 L 56 L Respiratory Rate 22 21 15 Blood Pressure 128/64 135/71 Pulse Oximetry 96 97 97 05/15/20 21:50 Temperature 98.2 F Pulse Rate 59 L Respiratory Rate 19 Blood Pressure 137/76 Pulse Oximetry 97 Oxygen Delivery Method Room Air Oxygen Flow Rate 0 Narrative Exam Narrative: GENERAL APPEARANCE: well developed, obese female with a BMI of 33.8 resting quietly in bed in no acute distress. HEENT: Normocephalic, PERRLA, conjunctiva clear, EOMs intact without nystagmus, no rhinorrhea, mucous membranes are moist and pink without lesions or exudate. NECK/THYROID: Decreased range of motion, muscular tenderness on palpation, no step-offs, no JVD, no carotid bruit, no thyromegaly, trachea midline. LYMPH NODES: no cervical or supraclavicular lymphadenopathy. SKIN: [place], warm and dry, no visible lesions or rashes HEART: regular rate and rhythm, S1-S2, no murmur, no rubs or gallops, brisk capillary refill, 2+ dorsalis pedis pulses, no edema LUNGS: clear to auscultation bilaterally, fine crackles bibasilar without coarseness of or wheezing, no cough present CHEST: Symmetrical movement, no accessory muscle use, good tidal volume, no pain on AP and lateral compression. ABDOMEN: Soft, round, no distention, no abdominal tenderness, no guarding or peritoneal signs, no organomegaly,active bowel tones. BACK: Lumbar back pain on palpation left greater than right, back pain worsened by straight leg raise. EXTREMITIES: moves all extremities, strength is 5/5 and symmetrical, no deformities or joint effusions, cyanosis or clubbing. NEUROLOGIC: AAO x4, no focal neurologic deficits, cranial nerves II-XII grossly intact, sensation intact to light touch, hearing grossly normal to speech. PSYCH: Good judgment, good insight, linear thought process, cooperative, appropriate with stable behavior Objective Labs Result Diagrams: 05/15/20 14:27 05/15/20 14:27 Labs: Laboratory Results - last 24 hr 05/15/20 05/15/20 05/15/20 14:27 14:27 14:27 WBC 7.1 RBC 4.62 Hgb 13.4 Hct 40.1 MCV 86.7 MCH 29.1 MCHC 33.5 RDW 14.0 Plt Count 345 Neut % (Auto) 53.1 Lymph % (Auto) 40.3 H [place] % (Auto) 5.2 Eos % (Auto) 0.8 L Baso % (Auto) 0.6 Neut # (Auto) 3800 Lymph # (Auto) 2900 [place] # (Auto) 400 Eos # (Auto) 100 Baso # (Auto) 0 PT 11.4 INR 1.0 APTT 31 Sodium 138 Potassium 3.5 Chloride 104 Carbon Dioxide 30 BUN 9 Creatinine 0.72 Estimated GFR > 60.0 BUN/Creatinine Ratio 12.5 Glucose 129 H Calcium 9.1 Magnesium Total Bilirubin 0.3 AST 64 H ALT 98 H Alkaline Phosphatase 105 Total Creatine Kinase 87 CK-MB (CK-2) TNP CK-MB (CK-2) Rel Index TNP Troponin I < 0.012 NT-Pro-B Natriuret Pep Total Protein 7.7 Albumin 4.5 Globulin 3.2 Albumin/Globulin Ratio 1.4 Lipase 82 SARS-CoV-2 (PCR) 05/15/20 05/15/20 05/15/20 14:27 15:33 16:28 WBC RBC Hgb Hct MCV MCH MCHC RDW Plt Count Neut % (Auto) Lymph % (Auto) [place] % (Auto) Eos % (Auto) Baso % (Auto) Neut # (Auto) Lymph # (Auto) [place] # (Auto) Eos # (Auto) Baso # (Auto) PT INR APTT Sodium Potassium Chloride Carbon Dioxide BUN Creatinine Estimated GFR BUN/Creatinine Ratio Glucose Calcium Magnesium 1.8 Total Bilirubin AST ALT Alkaline Phosphatase Total Creatine Kinase 88 CK-MB (CK-2) TNP CK-MB (CK-2) Rel Index TNP Troponin I < 0.012 NT-Pro-B Natriuret Pep 143 H Total Protein Albumin Globulin Albumin/Globulin Ratio Lipase SARS-CoV-2 (PCR) Negative Assessment & Plan Assessment & Plan narrative: This is a 39-year-old obese female who is a current smoker presents to the ER for chest pain similar to pain experienced 18 months ago when she had type 2 IN with placement of 2 stents. The patient has not followed up since. 1. Chest pain, rule out acute coronary syndrome, present on admission, active -the patient endorses chest pain that is been crescendo over 3 days with associated exertional dyspnea and worsening palpitations. She reports previous heart attack 18 months ago with intervention at [facility] with 2 stents. -patient continues to does describe residual left chest ache without radiation nausea or shortness of breath. Chest x-ray reveals no acute cardiopulmonary pathology and CT is negative for PE. -12 lead EKG: Sinus rhythm at 72 without ectopy or block, T-wave abnormalities with inverted T-wave in lead 3 and flat T-wave in AVF and inferior Q-waves in 3 and F. -total CK is 88 and troponin is negative x2. She has a proBNP of 143. Potassium is 3.5 and in setting of crescendo palpitations will replete 40 mEq of KCl. Magnesium is 1.8. -ordered nitroglycerin sublingual 0.4 mg Q 5 minutes x3 as needed for chest pain, order morphine 2 mg as needed for chest pain. -She continues to take aspirin 81 mg and clopidogrel 75 mg daily both of which are continued. -patient will be NPO at midnight for stress test in the morning. -normal saline 75 cc/hour. -ordered echocardiogram. -will recheck troponin with morning labs. 2. Hyperlipidemia, familial hypercholesterolemia, chronic, stable. -the patient self reports having LDL into the 400s in the past. -CT angiogram makes code of hepatic steatosis. Patient's total bilirubin is 0.3, AST of 64, ALT is 98 and alkaline phosphatase is 105. Albumin is 4.5. -will continue patient's atorvastatin 80 mg daily at bedtime. -obtain lipid profile in the morning. 3. Palpitations, chronic, stable. -patient of palpitations over the last several days at times taking her breath away. -no ectopy noted on 12-lead EKG or on telemetry. -Potassium is 3.5 and in setting of crescendo palpitations will replete 40 mEq of KCl. -will continue home regimine of metoprolol succinate 25mg daily, will hold the morning dose for the stress test. 4. Current smoker, chronic -provided teaching on smoking and heart disease, strongly encouraged cessation of smoking. VTE prophylaxis: Enoxaparin IV fluid: Normal saline 75 cc/hour Diet: Heart healthy Code status: Full code, the patient designates her Miguel Gonsalez to be her surrogate decision maker. The patient is admitted to the hospital to the duration and severity of her symptoms requiring further evaluation and treatment to prevent complications or adverse events. The patient is admitted as observation with expected length of stay to be less than 2 midnights. COVID-19 COVID-19 status: Negative Result date/Date tested (Pos, Neg/Pending): 05/15/20 Scores GCS [place] coma scale eye opening: Spontaneous [place] coma scale verbal response: Orientated Pankaj coma scale motor response: Obey commands [place] coma scale total score: 15 Quality VTE Deep Vein Thrombosis/Pulmonary Embolism Present on Admission: No
[2020-05-15] MEDS: ATORVASTATIN 20 MG TABLET 80 MG PO (22:50)
[2020-05-15] MEDS: MORPHINE 2 MG/ML INJ IV (23:21)
[2020-05-16] VITALS (7 sets, daily range): BP systolic 113–137; BP diastolic 62–74; PULSE 49–63; RESP 16–18; TEMP 36.4–36.7; O2SAT 97–98
[2020-05-16] MEDS: NITROGLYCERIN OINT 1 INCH/GM OINT...G. TOP (00:03)
[2020-05-16] MEDS: PANTOPRAZOLE 40 MG VIAL IV ×2 (00:04→09:06)
[2020-05-16] MEDS: ACETAMINOPHEN 325 MG TABLET 650 MG PO ×2 (00:45→12:06)
[2020-05-16] MEDS: POTASSIUM CHLORIDE 40 MEQ in SODIUM CHLORIDE 0.9% 500 ML 130 ML IV (00:46)
[2020-05-16 01:36] LABS: Troponin I < 0.012 ng/mL (0.01-0.034)
--- NOTE | 2020-05-16 03:01 | PC.NURSE ---
At shift change patient stated she was having 5/10 left chest pain which has been unresolved since coming to ER; medicated with Morphine without any change in pain. Discussed with PERSONNEL REPRESENTATIVE, Jonathon, who ordered Nitropaste + Protonix which were given. PERSONNEL REPRESENTATIVE in to see patient and after exam felt some of discomfort may be muscle related as tender across chest on palpation. Order received to give Tylenol to help prevent headache from Nitropaste. When checked on later patient appeared to be asleep. Is alert and oriented. Breath sounds CTA with RA sat of 95%; on continuous oximetry. HRR but bradycardic with rate in 50's but intermittently noted to drop down into 40's; PERSONNEL REPRESENTATIVE made aware of HR also. Telemetry reading was SB. Denies nausea. BT present and abdomen is soft. Denies dysuria, frequency or urgency with urination. Has dermatitis rash on anterior aspect of bilateral LE; patient states it can be itchy and has made appointment with churn driller helper. Wearing bilateral calf SCD's. NPO after 0000 per order as patient is to have stress test in a.m. Fall risk score is moderate but patient is steady on feet. Instructed to sit on edge of bed when getting up and if dizzy, lightheaded or feeling weak to call for staff assistance; verbalizes understanding.
[2020-05-16 05:48] LABS: Add Manual Diff / Slide Review NO; Basophils Absolute Auto 0 /uL (0-100); Basophils Percent Auto 0.4 % (0-2); Eosinophils Absolute Auto 100 /uL (0-450); Hematocrit 37.6 % (36-46); Hemoglobin 12.4 g/dL (12.0-16.0); Lymphocytes Absolute Auto 2900 /uL (1100-4500); Lymphocytes Percent Auto 46.4 % (25-40); Mean Corpuscular Hemoglobin 28.9 PG (26-34); Mean Corpuscular Volume 87.6 fL (80-100); Monocytes Absolute Auto 400 /uL (0-900); Monocytes Percent Auto 6.8 % (3-14); Neutrophils Absolute Auto 2800 /uL (1500-7000); Neutrophils Percent Auto 44.4 % (50-75); Platelet Count 304 X10^3/uL (150-400); Red Blood Cell Count 4.29 X10^6/uL (4.0-5.2); Red Cell Distribution Width 13.9 % (11.6-14.8); White Blood Cell Count 6.3 X10^3/uL (4.5-11.0)
[2020-05-16 05:55] LABS: Hemoglobin A1C% w Est Avg Glu 5.4 % (4.0-6.0)
[2020-05-16 05:59] LABS: BUN Creatinine Ratio 11.4 (6-22); Blood Urea Nitrogen 8 mg/dL (7-17); Calcium 8.6 mg/dL (8.4-10.2); Carbon Dioxide 30 mmol/L (22-32); Chloride 107 mmol/L (98-107); Cholesterol 264 mg/dL (140-199); Estimated Glomerular Filt Rate > 60.0 mL/min (>60); Glucose 100 mg/dL (70-100); HDL Cholesterol 30 mg/dL (40-60); HEMOLYSIS < 15 (0-50); LDL Cholesterol Calculated 213 mg/dL (<100); Potassium 4.9 mmol/L (3.4-5.1); Sodium 138 mmol/L (137-145); Triglycerides 107 mg/dL (35-150)
[2020-05-16 06:09] LABS: Troponin I < 0.012 ng/mL (0.01-0.034)
[2020-05-16 06:35] LABS: TSH w/ Reflex to FT4 3.66 uIU/mL (0.47-4.68)
[2020-05-16] MEDS: ASPIRIN EC 81 MG TABLET PO (09:02)
[2020-05-16] MEDS: ENOXAPARIN 40 MG/0.4 ML SYRINGE SUBCUT (09:02)
[2020-05-16] MEDS: CLOPIDOGREL 75 MG TABLET PO (09:02)
[2020-05-16] MEDS: METOPROLOL ER 25 MG TABLET PO (09:03)
--- NOTE | 2020-05-16 11:50 | CM.DANOTE ---
Discharge Planning/Care Management DCP: assessment: case received, EMR reviewed. Discussed in Team Rounds. Met now with pt and introduced self and role. Pt is a 39 year old female who admitted yesterday to care of hospitalist team. PCP: Solange Zamudio Contract Attorney: Dr. Bartlett/[facility] Pt is going for a stress test later today and with either a d/c home after that or a transfer for higher level of cardiac care. Dr. Tracy states that with pt's cardiac history she is at high risk. Pt reports support from her boyfriend as well as her adult and teenage children and her long from . P: as per above CM Discharge Assessment Start: 05/16/20 11:49 Freq: Status: Active Protocol: Document 05/16/20 11:49 ITV (Rec: 05/16/20 11:50 ITV [id number]) Discharge Planning Assessment Advance Directives? No History Provided By Patient,Medical Record Prior Living Arrangements House Household Members significant other Comment Lives with boyfriend Miguel Gonsalez. He is pt's designated visitor. Independent with ADL's Yes Is patient alert and oriented? Yes Review Status In Process
--- NOTE | 2020-05-16 13:26 | PM.TREADMILL ---
Cardiac Stress Test Report Referral & Results Date Patient Seen: 05/16/20 Time Patient Seen: 13:27 Requesting provider: Miguel Holt Indication: chest pain Rest ECG: Sinus bradycardia Procedure Note: Patient c/o dyspnea in less than 3 minutes into the Ruel protocol. Patient requested to stop the test. Test was changed to a Lexiscan nuclear stress test. After Lexiscan injection, she developed 6/10 sternum chest pain, dyspnea and diaphoresis. There were no ECG changes. Chest pain, dyspnea and diaphoresis resolved 9 minutes into recovery. Impression: Abnormal stress test. Nuclear images pending. Please note: Actual ECG tracings can be found in the PACS system.
[2020-05-16] MEDS: METHADONE 10 MG TABLET 50 MG PO (14:17)
[2020-05-16] MEDS: METHADONE 10 MG TABLET 115 MG PO (16:37)
--- NOTE | 2020-05-16 16:51 | PC.NURSE ---
Addendum entered by Charo Oglesby R.N. 05/16/20 19:13: Tele dc'd and iv dc'd intact. Pt up ad rand in room dressing self. States feels same as when admitted. Discharge instructions given in written and verbal format to pt. Pt's mentation is appropriate and pt is alert and awake. States driving self home as has vehicle in parking lot. Pt is not sedated on any level and states on methadone x one year and does safely drive and function. Pt states feels safe to drive self home. Pt left hospital with all valuables in possession except bra which pt states was forgotten in [facility] This gag writer phoned [facility] and staff will attempt to locate when time permits. Pt was informed and states is okay with this. Pt left hospital via wheelchair accompanied by this gag writer to private vehicle. Pt left hospital in stable condition. Addendum entered by Charo Oglesby R.N. 05/16/20 18:05: Inquired of pt if headache has improved. Pt reports, It's okay, he's sending me home. Original Note: Pt awake and alert resting quietly in bed. States headache behind eyes 8-9/10. States chest pain (and pt places hand near left breast) is 5/10. Pt denies any radiating pain. States 5/10 has been rather constant. Denies nausea. Given methadone as ordered and as per home routine. Per Dr. Tracy, this should help with pt's headache and pt was informed. Tele in place. Pt is able to move all extremities independently.
--- NOTE | 2020-05-16 17:42 | P.DS_ITS ---
History of Present Illness History of Present Illness Date Patient Seen: 05/16/20 Time Patient Seen: 17:42 Chief complaint: heart attack 1.5yrs ago, SOB, chest pain Narrative: As per JERARDO Cooney: Ms. Daphne Connelly is a 39-year-old female was a current smoker and has a past medical history significant for coronary artery disease, NSTEMI status post stenting x2 (2019), history of palpitations, familial hypercholesterolemia chronic lumbar back pain status post back surgery x2 who presents to the ER with chest pain, palpitations and dyspnea. The patient states that her symptoms began on Tuesday when she ?just felt off? and woke Tuesday with chest discomfort and took the day off. She has had progressive weakness in general fatigue with progressive exertional dyspnea. She reports having history of palpitations however today she felt marked fluttering and pressure that she describes would take her breath away. Her chest pain she describes as left chest heaviness ache as 7/10 radiating into the left jaw and left arm that was nonpleuritic. She took a nitro this morning for her discomfort without improvement after which she did have a headache. Patient was seen at [facility] on 12/17/2018 for similar complaints and on evaluations found to have an elevated troponin is 0.625 prompting transfer to [facility] for further treatment where the patient received 2 stents under the care of Dr. Villegas with whom she has not followed up since. The patient denies recent illness cold or flu symptoms and has had no fevers or chills. 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 She denies headaches except for after nitro, has no dizziness nasal congestion or sore throat. She has chest pain and shortness of breath as above describing becoming dyspneic walking across the parking lot to the ER entrance. She has had no epigastric or abdominal pain and denies nausea or vomiting, diarrhea or constipation. She reports no urinary symptoms of urgency frequency or burning. The patient has chronic low back pain left greater than right describing intermittent numbness to the lower extremities. Upon arrival to the ER the patient has a temperature of 98.8?, heart rate of 77, blood pressure 138/87, respirations 15 saturating 100% on room air. EKG is obtained finding a sinus rhythm at 72 without ectopy or block, inverted T-waves in lead 3 with flat T-waves in AVF and Q-waves lead 3 and AVF. Chest x-ray obtained finds no acute cardiopulmonary processes. CT angiogram is negative for PE makes note of small hiatal hernia and hepatic steatosis. On laboratory analysis the patient has a white count of 7.1, hemoglobin of 13.4, hematocrit 40.1 and platelets of 347. Her coagulation studies within normal limits under chemistries is notable for potassium of 3.5 and magnesium of 1.8 with a BUN of 9 and creatinine 0.72. Her nonfasting glucose is 129. Total bilirubin is 0.3 with an elevated AST at 64 and a L T at 98? with alkaline phosphatase 1 5. Her total CK is 88 and her troponin is less than 0.012 x 2, proBNP is 143. While in the ER, Dr. Chavez was consulted who recommended admitting the patient for rule out ACS considering her symptoms and lack of follow-up. The patient is admitted to the hospitalist service for chest pain rule out ACS. Discharge Providers Provider Date of admission: 05/15/20 21:15 Discharge Date: 05/16/20 Primary care physician: Solange Zamudio DO Consults: 05/15/20 21:24 Consult to Dietitian, Adult Routine Comment: Reason For Exam: Chest pain, history hyperlipidemia Consult to Discharge Planning Routine Comment: Discharge provider: Miguel Tracy DO Summary Hospital Course Discharge Diagnosis: 1. Chest pain, rule out acute coronary syndrome, present on admission. 2. Hyperlipidemia, familial hypercholesterolemia, chronic, stable. 3. Palpitations, chronic, stable. 4. Current smoker, chronic Hospital Course: This is a 39-year-old obese female who is a current smoker presents to the ER for chest pain similar to pain experienced 18 months ago when she had type 2 NH with placement of 2 stents. The patient had not followed up since her NH but reported that she had continued to take her medications at home. She was admitted for serial enzymes, which were negative and subsequently cardiology recommended further evaluation with stress testing. Nuclear stress testing was deemed low risk for ischemia. Her echocardiogram showed improved wall motion abnormalities compared to her prior echo. Given her history and symptoms, as well as the lack of tenderness on exam, will discharge on Imdur to see if this helps with her symptoms. I recommend that she follow-up with her primary care provider and Cardiology as an outpatient and stop smoking. No other medication changes were made. Exam Vital Signs (past 8 hours): - 05/16/20 10:00 05/16/20 12:00 05/16/20 16:33 Temperature 98.0 F 97.5 F L Pulse Rate 53 L 53 L 49 L Respiratory Rate 18 16 Blood Pressure 133/70 133/70 137/62 Pulse Oximetry 98 97 Oxygen Delivery Method Room Air Oxygen Flow Rate 0 Narrative Exam Narrative: GENERAL APPEARANCE: well developed, obese female with a BMI of 33.8 resting quietly in bed in no acute distress. HEENT: Normocephalic, PERRLA, conjunctiva clear, EOMs intact without nystagmus, no rhinorrhea, mucous membranes are moist and pink without lesions or exudate. NECK/THYROID: Decreased range of motion, muscular tenderness on palpation, no step-offs, no JVD, no carotid bruit, no thyromegaly, trachea midline. LYMPH NODES: no cervical or supraclavicular lymphadenopathy. SKIN: [place], warm and dry, no visible lesions or rashes HEART: regular rate and rhythm, S1-S2, no murmur, no rubs or gallops, brisk capillary refill, 2+ dorsalis pedis pulses, no edema LUNGS: clear to auscultation bilaterally, no cough present CHEST: Symmetrical movement, no accessory muscle use, good tidal volume, no pain on AP and lateral compression. ABDOMEN: Soft, round, no distention, no abdominal tenderness, no guarding or peritoneal signs, no organomegaly,active bowel tones. BACK: Lumbar back pain on palpation left greater than right, back pain worsened by straight leg raise. EXTREMITIES: moves all extremities, strength is 5/5 and symmetrical, no deformities or joint effusions, cyanosis or clubbing. NEUROLOGIC: AAO x4, no focal neurologic deficits, cranial nerves II-XII grossly intact, sensation intact to light touch, hearing grossly normal to speech. PSYCH: Good judgment, good insight, linear thought process, cooperative, appropriate with stable behavior Objective Labs Result Diagrams: 05/16/20 05:40 05/16/20 05:40 Labs: Laboratory Results - last 24 hr 05/16/20 05/16/20 05/16/20 01:05 05:40 05:40 WBC 6.3 RBC 4.29 Hgb 12.4 Hct 37.6 MCV 87.6 MCH 28.9 MCHC 33.0 RDW 13.9 Plt Count 304 Neut % (Auto) 44.4 L Lymph % (Auto) 46.4 H [place] % (Auto) 6.8 Eos % (Auto) 2.0 Baso % (Auto) 0.4 Neut # (Auto) 2800 Lymph # (Auto) 2900 [place] # (Auto) 400 Eos # (Auto) 100 Baso # (Auto) 0 Sodium 138 Potassium 4.9 D Chloride 107 Carbon Dioxide 30 BUN 8 Creatinine 0.70 Estimated GFR > 60.0 BUN/Creatinine Ratio 11.4 Glucose 100 Hemoglobin A1c Calcium 8.6 Troponin I < 0.012 < 0.012 Triglycerides 107 Cholesterol 264 H LDL Cholesterol, Calc 213 H HDL Cholesterol 30 L TSH 05/16/20 05/16/20 05:40 05:40 WBC RBC Hgb Hct MCV MCH MCHC RDW Plt Count Neut % (Auto) Lymph % (Auto) [place] % (Auto) Eos % (Auto) Baso % (Auto) Neut # (Auto) Lymph # (Auto) [place] # (Auto) Eos # (Auto) Baso # (Auto) Sodium Potassium Chloride Carbon Dioxide BUN Creatinine Estimated GFR BUN/Creatinine Ratio Glucose Hemoglobin A1c 5.4 Calcium Troponin I Triglycerides Cholesterol LDL Cholesterol, Calc HDL Cholesterol TSH 3.66 [facility] Medical History (Updated 05/16/20 @ 01:03 by JERARDO Cooney) Chronic low back pain Coronary artery disease Current smoker Familial hypercholesterolemia NSTEMI (non-ST elevated myocardial infarction) Palpitations Surgical History (Updated 05/15/20 @ 23:54 by JERARDO Cooney) History of lumbar surgery History of vaginal hysterectomy Hx of heart artery stent Family History (Updated 05/15/20 @ 23:56 by JERARDO Cooney) Father Familial hypercholesterolemia Coronary artery disease Mother Cancer [place]'s thyroiditis Grandfather Coronary artery disease Social History household members: significant other Smoking Status: Current some day smoker alcohol intake: never Discharge Plan Discharge Plan Patient Disposition: Home Provider Discharge Comment: You were admitted to the hospital with chest pain. Stress testing was negative and you echo appeared unremarkable. You can try a medication to see if it helps which has been prescribed. Please follow up with your PCP next week if possible. Discharge orders & Medications Prescriptions: New isosorbide mononitrate 30 mg tablet extended release 24 hr 30 mg PO DAILY 30 Days Qty: 30 RF: 0 Continued atorvastatin 80 mg Tablet 80 mg PO BEDTIME RF: 0 clopidogrel 75 mg Tablet 75 mg PO DAILY RF: 0 aspirin 81 mg Tablet 81 mg PO DAILY RF: 0 metoprolol succinate [Toprol XL] 25 mg Tablet Extended Release 24 Hr 25 mg PO DAILY RF: 0 Follow up/Referrals: Solange Zamudio DO [Primary Care Provider] - Diet/Activity/Treatments Diet: Diet as Tolerated and Low-sodium Activity: As tolerated Visit Report/Discharge Packet Instructions: DI for Chest Pain Discharge Data Primary Care Provider: Solange Zamudio Attending Provider: Miguel Holt VTE Deep Vein Thrombosis/Pulmonary Embolism Present on Admission: No
--- NOTE | 2020-05-22 21:07 | PC.NURSE ---
Late Entry; NS infusion initiated 05/15 at 22:23, complete 05/16 at 11:43.
== END 2020-05-16 19:16 | disposition home or self-care (01) ==
LOC: ED 17:43 → AC 21:16
PROVIDERS: Nurse Practitioner Family; Admitting Provider Nurse Practitioner Adult Health; Emergency Provider Emergency Medicine; PCP Family Medicine; Referring Provider Emergency Medicine; Visit Provider Nurse Practitioner Adult Health
DX: R07.9 Chest pain, unspecified (principal); R00.2 Palpitations; F17.210 Nicotine dependence, cigarettes, uncomplicated; I25.2 Old myocardial infarction; Z79.01 Long term (current) use of anticoagulants; E78.5 Hyperlipidemia, unspecified; Z20.822 Contact with and (suspected) exposure to COVID-19
CPT/HCPCS: 36415; 71045; 71275; 78452; 80048; 80053; 80061; 82550; 83036; 83690; 83735; 83880; 84443; 84484; 85025; 85610; 85730; 87635; 93005; 93017; 93306; 96361; 96372; 96374; 96375; 96376; 99284; C9803; G0378; A9502; C9113; J1650; J2270; J2785; J3480; Q9967

== ENCOUNTER 2020-06-03 08:32 | Emergency (ER) | payer OTHER, SELFPAY ==
[2020-05-15 21:19] VITALS: BMI 33.8
[2020-06-03 08:35] VITALS: BP 147/86; PULSE 100; RESP 16; TEMP 36.4; O2SAT 100; BMI 33.8
--- NOTE | 2020-06-03 08:45 | DI.RAD.S_ITS ---
PROCEDURE: XR FOREARM RT 2V INDICATIONS: dog bite TECHNIQUE: 2 views of the forearm were acquired. COMPARISON: None. FINDINGS: Bones: No fractures or dislocations. No cortical erosions. No suspicious bony lesions. Soft tissues: There is soft tissue swelling within the volar aspect of the mid forearm. No radiopaque foreign bodies or definite soft tissue gas. No suspicious soft tissue calcifications or masses. IMPRESSION: 1. No fractures or radiopaque foreign bodies. No definite soft tissue gas visualized. Dictated by: Pio Woo M.D. on 06/03/2020 at 9:15 Approved by: Pio Woo M.D. on 06/03/2020 at 9:16
--- NOTE | 2020-06-03 08:53 | ED.ANIMALBIT ---
HPI - Animal Bite General Chief Complaint: Animal Bite Stated Complaint: Bit by dog Time Seen by Provider: 06/03/20 08:45 Source: patient Mode of arrival: Ambulatory Limitations: no limitations History of Present Illness HPI narrative: Patient is a 39-year-old female with history of hyperlipidemia and coronary artery disease with stent on Plavix presenting with right arm dog bite. She says she was walking at home in [place] when she saw a dog that came up to her at that seem to be friendly she had never seen the dog before she headed the dog and the dog bit her right arm. She was wearing 2 jackets no actual puncture wound. She had immediate swelling of her forearm. She denies any numbness or tingling she is able to move her fingers. MD complaint: animal bite Animal: dog Description of animal: unknown animal and immunizations unknown Related Data Home Medications Medication Instructions Recorded Confirmed aspirin 81 mg PO DAILY 05/15/20 05/15/20 atorvastatin 80 mg PO BEDTIME 05/15/20 05/15/20 clopidogrel 75 mg PO DAILY 05/15/20 05/15/20 metoprolol succinate [Toprol XL] 25 mg PO DAILY 05/15/20 05/15/20 Previous Rx's Medication Instructions Recorded isosorbide mononitrate 30 mg PO DAILY 30 Days #30 tab 05/16/20 amoxicillin-pot clavulanate 1 tab PO Q12H #14 tab 06/03/20 [Augmentin] Allergies Allergy/AdvReac Type Severity Reaction Status Date / Time codeine Allergy Verified 05/15/20 14:18 ibuprofen Allergy Verified 05/15/20 14:18 pregabalin [From Lyrica] Allergy Verified 05/15/20 14:18 zolpidem [From Ambien] Allergy Verified 05/15/20 14:18 Review of Systems Review of Systems Narrative: GENERAL: Denies chills,fever HEENT: Denies throat pain RESPIRATORY: Denies dyspnea, cough, wheezing CARDIOVASCULAR: Denies chest pain, palpitations GASTROINTESTINAL: Denies nausea, vomiting MUSCULOSKELETAL: Denies extremity pain, injury SKIN: See HPI NEUROLOGIC: Denies weakness, dizziness, headache, numbness 8 point review of systems is negative except for those stated above and HPI Patient History Medical History Chronic low back pain Coronary artery disease Current smoker Familial hypercholesterolemia NSTEMI (non-ST elevated myocardial infarction) Palpitations Surgical History History of lumbar surgery History of vaginal hysterectomy Hx of heart artery stent Family History Father Familial hypercholesterolemia Coronary artery disease Mother Cancer [place]'s thyroiditis Grandfather Coronary artery disease Social History household members: significant other Smoking Status: Current some day smoker alcohol intake: never Smoking Status: Current some day smoker alcohol intake frequency: holidays/special occasions only Substance Use Type: marijuana Exam Initial Vital Signs Initial Vital Signs: Vital Signs Temperature 97.5 F L 06/03/20 08:35 Pulse Rate 100 H 06/03/20 08:35 Respiratory Rate 16 06/03/20 08:35 Blood Pressure 147/86 H 06/03/20 08:35 Pulse Oximetry 100 06/03/20 08:35 GENERAL: Well-appearing, well-nourished and in no acute distress. CARDIOVASCULAR: peripheral pulses in tact, cap refill <2 sec RESPIRATORY: No respiratory distress, speaks in full sentences without difficulty EXTREMITIES: Normal range of motion, no clubbing or edema. Neurovascularly intact NEUROLOGICAL: Cranial nerves II through XII grossly intact. Normal gait and speech. SKIN: No actual puncture wounds noted on right forearm but there is a scrape and a large contusion centrally located on the anterior side. 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 COMPARISON: None. FINDINGS: Bones: No fractures or dislocations. No cortical erosions. No suspicious bony lesions. Soft tissues: There is soft tissue swelling within the volar aspect of the mid forearm. No radiopaque foreign bodies or definite soft tissue gas. No suspicious soft tissue calcifications or masses. IMPRESSION: 1. No fractures or radiopaque foreign bodies. No definite soft tissue gas visualized. Dictated by: Pio Woo M.D. on 06/03/2020 at 9:15 MDM Narrative Medical decision making narrative: She did not report it to animal Control. Unknown if dog's vaccines are up-to-date discussed with her rabies vaccination however at this time she declined. At this time I do not have concerns for compartment syndrome however I did discuss with her elevating and ice. Discharge Plan Departure Patient Disposition: Home Clinical Impression: Dog bite, Contusion of lower arm, right Instructions: DI for Animal Bites Activity Restrictions/Additional Instructions: *You have been diagnosed with right arm contusion and dog bite *What to do: Please keep arm elevated above heart an apply ice for 20-30 minutes. Monitor closely for more swelling and infection. *Continue to take medications as directed Augmentin 875 mg twice a day for 7 days Tylenol 650 mg every 4-6 hours if needed for pain *Follow up with your primary care provider in 2-3 days *Return to ER if you should have increasing swelling, numbness, tingling weakness, redness streaking or fever or any new, worsening or concerning symptoms Prescriptions: New amoxicillin-pot clavulanate [Augmentin] 875-125 mg tablet 1 tab PO Q12H Qty: 14 RF: 0 No Action atorvastatin 80 mg Tablet 80 mg PO BEDTIME RF: 0 clopidogrel 75 mg Tablet 75 mg PO DAILY RF: 0 aspirin 81 mg Tablet 81 mg PO DAILY RF: 0 metoprolol succinate [Toprol XL] 25 mg Tablet Extended Release 24 Hr 25 mg PO DAILY RF: 0 isosorbide mononitrate 30 mg tablet extended release 24 hr 30 mg PO DAILY 30 Days Qty: 30 RF: 0 Referrals: Solange Zamudio DO [Primary Care Provider] -
--- NOTE | 2020-06-03 09:20 | PC.NURSE ---
Abrasion on R forearm cleaned with CHG and wrapped with non-adherent gauze and coban
== END 2020-06-03 09:22 | disposition home or self-care (01) ==
LOC: ED 09:21
PROVIDERS: Emergency Provider Emergency Medicine; PCP Family Medicine
DX: S41.151A Open bite of right upper arm, initial encounter (principal); S40.021A Contusion of right upper arm, initial encounter; W54.0XXA Bitten by dog, initial encounter; E78.5 Hyperlipidemia, unspecified; I25.10 Atherosclerotic heart disease of native coronary artery without angina pectoris; Z95.5 Presence of coronary angioplasty implant and graft; Z79.01 Long term (current) use of anticoagulants
CPT/HCPCS: 73090; 99283

== ENCOUNTER → 2021-02-12 09:49 | Outpatient (CLI) | payer OTHER, SELFPAY ==
[2020-05-15 21:19] VITALS: BMI 33.8
--- NOTE | 2021-02-12 | DI.MRI.S_ITS ---
PROCEDURE: MR CERVICAL SPINE WO CON INDICATIONS: Radiculopathy, cervical region TECHNIQUE: Noncontrast sagittal T1 spin echo and T2 fast spin echo, sagittal STIR, foraminal oblique sagittal T2 fast spin echo, and axial gradient echo and T2 fast spin echo through the cervical spine. COMPARISON: None. FINDINGS: Image quality: This examination is limited by involuntary motion artifact. Alignment and Curvature: There is straightening of the normal cervical lordosis. No focal AP alignment abnormality is seen. Bone Marrow: Marrow demonstrates normal overall signal. Spinal Cord: Visualized spinal cord has normal size and signal. No cerebellar tonsillar herniation. Paraspinous Soft Tissues: No paravertebral masses. Prevertebral soft tissues are normal in thickness. C2-C3: No significant abnormality is seen. C3-C4: The disc height is well-preserved. Loss of disc signal is seen at this level. A mild degree of generalized disc osteophyte complex is seen. Mild facet joint hypertrophy is seen. There is [id number] right-sided and moderate left-sided neural foraminal narrowing seen. No significant central canal narrowing is seen. C4-C5: The disc height is well-preserved. Loss of disc signal is seen at this level. A mild degree of generalized disc osteophyte complex is seen. Moderate facet joint hypertrophy is seen. Moderate bilateral neural foraminal narrowing can be seen, right worse than left. No significant central canal narrowing is seen. C5-C6: The disc height is well-preserved. Loss of disc signal is seen at this level. Mild to moderate disc osteophyte complex is seen. Mild to moderate facet hypertrophy is seen. Mild to moderate bilateral neural foraminal narrowing is seen. No central canal narrowing can be seen. C6-C7: The disc height is well-preserved. Loss of disc signal is seen at this level. A mild degree of generalized disc osteophyte complex is seen. Minimal bilateral neural foraminal narrowing can be seen. Minimal central canal narrowing is seen. C7-T1: No significant abnormality is seen. IMPRESSION: Multiple levels of cervical spine degenerative change are seen, which are overall worst at the C4-C5 level. Straightening of the normal cervical lordosis is seen, which is commonly observed in patients with muscular spasm. Dictated by: Wayne Siegel M.D. on 02/12/2021 at 9:37 Approved by: Wayne Siegel M.D. on 02/12/2021 at 9:40
== END ==
PROVIDERS: PCP Family Medicine; Referring Provider Family Medicine; Visit Provider Family Medicine
DX: M54.12 Radiculopathy, cervical region (principal); M50.321 Other cervical disc degeneration at C4-C5 level; M48.02 Spinal stenosis, cervical region
CPT/HCPCS: 72141

== ENCOUNTER 2021-06-24 10:26 | Emergency (ER) | payer OTHER, SELFPAY ==
[2020-05-15 21:19] VITALS: BMI 33.8
[2021-06-24 10:47] VITALS: BP 153/85; PULSE 95; RESP 20; TEMP 36.5; O2SAT 98; BMI 33.8
--- NOTE | 2021-06-24 13:44 | ED_ITS ---
HPI - Neck Pain/Injury <Urvashi Chin, [facility] - Last Filed: 06/24/21 15:20> General Chief Complaint: Neck Pain/Injury Stated Complaint: Neck pain x5 days Time Seen by Provider: 06/24/21 13:25 Mode of arrival: Ambulatory History of Present Illness HPI Narrative: 41-year-old female with history of myocardial infarction x1 stent on Plavix and hypertension presents to the emergency department complaining of neck pain with radiculopathy and radiation down her left arm for 5 days. Patient endorses having muscle tension, sore neck, headache, and numbness and tingling in her left hand occasionally. She says that she woke up wrong 5 days ago, and has had a sore neck since. On chart review patient had a cervical spine MRI in February 2021 which shows multiple levels of cervical spine degenerative changes and overall worst at the C4-C5 level with straightening of the normal cervical lordosis is seen which is commonly observed in patients with muscular spasm. No significant central canal narrowing is seen in cervical spine, there was [id number] bilateral neural foraminal narrowing in C5-C6. Patient states that she had that cervical spine MRI completed for the radiculopathy symptoms in her left arm, she says this has gone on since February but she states that she has never had neck pain like this. Patient states that she has difficulty moving her head, her head feels heavy, her neck is tight and painful, she denies fever, denies any nausea vomiting, denies any difficulty walking, denies any weakness, denies any syncope or altered mentation, denies any incontinence. Related Data Home Medications Medication Instructions Recorded Confirmed aspirin 81 mg tablet 81 mg PO DAILY 05/15/20 05/15/20 atorvastatin 80 mg tablet 80 mg PO BEDTIME 05/15/20 05/15/20 clopidogrel 75 mg tablet 75 mg PO DAILY 05/15/20 05/15/20 metoprolol succinate 25 mg 25 mg PO DAILY 05/15/20 05/15/20 tablet,extended release 24 hr (Toprol XL) Previous Rx's Medication Instructions Recorded amoxicillin 875 mg-potassium 1 tab PO Q12H #14 tab 06/03/20 clavulanate 125 mg tablet (Augmentin) famotidine 20 mg tablet (Pepcid) 20 mg PO DAILY #20 tab 06/24/21 hydrocodone 5 mg-acetaminophen 325 1 tab PO Q8H PRN #10 tab 06/24/21 mg tablet lidocaine 5 % topical patch 1 patch TOPICAL DAILY PRN #15 ea 06/24/21 methocarbamol 500 mg tablet 500 mg PO TID PRN #20 tab 06/24/21 prednisone 50 mg tablet 50 mg PO DAILY #5 tab 06/24/21 Allergies Allergy/AdvReac Type Severity Reaction Status Date / Time codeine Allergy Verified 05/15/20 14:18 ibuprofen Allergy Verified 05/15/20 14:18 pregabalin [From Lyrica] Allergy Verified 05/15/20 14:18 zolpidem [From Ambien] Allergy Verified 05/15/20 14:18 Review of Systems <JERARDO Lopes - Last Filed: 06/24/21 15:20> Review of Systems Narrative: General: denies fever, chills, malaise, sweats, fatigue Head/Neck: Endorses mild headache and right-sided neck pain, denies dizziness Eyes: denies visual changes, eye pain Cardio: denies chest pain, palpitations, edema Respiratory: denies dyspnea, cough, orthopnea GI: denies abdominal pain, nausea, vomiting, or diarrhea : denies dysuria, hematuria, urinary retention, frequency or incontinence MSK: denies joint pain, muscle weakness Skin: denies rash, itching, skin lesions or other Neuro: denies numbness, tingling Patient History <JERARDO Lopes - Last Filed: 06/24/21 15:20> Medical History Chronic low back pain Coronary artery disease Current smoker Familial hypercholesterolemia NSTEMI (non-ST elevated myocardial infarction) Palpitations Surgical History History of lumbar surgery History of vaginal hysterectomy Hx of heart artery stent Family History Father Familial hypercholesterolemia Coronary artery disease Mother Cancer [place]'s thyroiditis Grandfather Coronary artery disease Social History household members: significant other Smoking Status: Current some day smoker alcohol intake: never Smoking Status: Current some day smoker alcohol intake frequency: holidays/special occasions only Substance Use Type: marijuana Exam <JERARDO Lopes - Last Filed: 06/24/21 15:20> Narrative Exam Narrative: Independently reviewed vitals signs and nursing notes. General: Cooperative, comfortable, in no acute distress, well developed and well groomed Head/Neck: Normal visual inspection and supple, atraumatic, no JVD or lymphadenopathy. Normal facial exam, right trapezius is tight, right cervical musculature is tender to palpation, no tenderness along cervical vertebrae, nose nystagmus, Eyes: Pupils equal round and reactive, EOMI, conjunctiva normal, no scleral icterus or injections Nose: External nose normal, nares patent, no rhinorrhea, without purulent drainage Mouth/Throat: uvula midline, moist mucus membranes Cardio: Regular rate and rhythm, no peripheral edema, warm extremities Respiratory: Normal respiratory effort, able to speak in complete sentences without audible wheezing, stridor, or rales. No retractions. GI: Abdomen soft, nontender to palpation x4 quadrants, nondistended, no masses or exquisite tenderness with exam, no flank tenderness MSK: Moves all extremities, neurovascularly intact, strength 5/5 x5 extremities, no peripheral edema Skin: Normal capillary refill, no rash Neuro: Normal speech and cognition, normal gait, A&O x3, tone normal, moves all extremities Psych: Mental status is grossly normal, speech is clear, congruent mood, normal affect Initial Vital Signs Initial Vital Signs: Vital Signs Temperature 97.7 F 06/24/21 10:47 Pulse Rate 95 H 06/24/21 10:47 Respiratory Rate 20 06/24/21 10:47 Blood Pressure 153/85 H 06/24/21 10:47 Pulse Oximetry 98 06/24/21 10:47 <Jhon Cabral DO - Last Filed: 06/28/21 18:43> Initial Vital Signs Initial Vital Signs: Vital Signs Temperature 97.7 F 06/24/21 10:47 Pulse Rate 95 H 06/24/21 10:47 Respiratory Rate 20 06/24/21 10:47 Blood Pressure 153/85 H 06/24/21 10:47 Pulse Oximetry 98 06/24/21 10:47 Course <JERARDO Lopes - Last Filed: 06/24/21 15:20> Orders Ordered: Discontinued Medications Hydrocodone Bitart/Acetaminophen (Hydrocodone/Acet 5/325 Tablet) 1 tab PO NOW ONE Stop: 06/24/21 13:45 Last Admin: 06/24/21 13:58 Dose: 1 tab Documented by: ASHLEE Hydrocodone Bitart/Acetaminophen (Hydrocodone/Acet 5/325 Tablet) 1 tab PO NOW ONE Stop: 06/24/21 14:52 Last Admin: 06/24/21 15:14 Dose: 1 tab Documented by: ASHLEE Diazepam (Diazepam 2 Mg Tablet) 2 mg PO NOW ONE Stop: 06/24/21 14:04 Last Admin: 06/24/21 14:16 Dose: 2 mg Documented by: SHANICE Famotidine (Famotidine 20 Mg Tablet) 20 mg PO NOW ONE Stop: 06/24/21 13:48 Last Admin: 06/24/21 13:58 Dose: 20 mg Documented by: ASHLEE Ketorolac Tromethamine (Ketorolac 30 Mg/Ml Vial) 15 mg IM NOW ONE Stop: 06/24/21 14:51 Last Admin: 06/24/21 15:13 Dose: 15 mg Documented by: ASHLEE Lidocaine (Lidocaine Patch 1 Each Adh..Patch) 1 each TOP DAILY ELLIOT Last Admin: 06/24/21 14:00 Dose: 1 each Documented by: ASHLEE Methocarbamol (Methocarbamol 500 Mg Tablet) 500 mg PO NOW ONE Stop: 06/24/21 13:45 Last Admin: 06/24/21 13:58 Dose: 500 mg Documented by: ASHLEE Methocarbamol (Methocarbamol 500 Mg Tablet) 500 mg PO NOW ONE Stop: 06/24/21 14:51 Last Admin: 06/24/21 15:14 Dose: 500 mg Documented by: ASHLEE Prednisone (Prednisone 20 Mg Tablet) 50 mg PO NOW ONE Stop: 06/24/21 13:45 Last Admin: 06/24/21 13:58 Dose: 50 mg Documented by: ASHLEE Vital Signs Vital signs: Vital Signs - 8 hr 06/24/21 10:47 Temperature 97.7 F Pulse Rate 95 H Respiratory Rate 20 Blood Pressure 153/85 H Pulse Oximetry 98 <Jhon Cabral DO - Last Filed: 06/28/21 18:43> Orders Ordered: Discontinued Medications Hydrocodone Bitart/Acetaminophen (Hydrocodone/Acet 5/325 Tablet) 1 tab PO NOW ONE Stop: 06/24/21 13:45 Last Admin: 06/24/21 13:58 Dose: 1 tab Documented by: ASHLEE Hydrocodone Bitart/Acetaminophen (Hydrocodone/Acet 5/325 Tablet) 1 tab PO NOW ONE Stop: 06/24/21 14:52 Last Admin: 06/24/21 15:14 Dose: 1 tab Documented by: ASHLEE Diazepam (Diazepam 2 Mg Tablet) 2 mg PO NOW ONE Stop: 06/24/21 14:04 Last Admin: 06/24/21 14:16 Dose: 2 mg Documented by: SHANICE Famotidine (Famotidine 20 Mg Tablet) 20 mg PO NOW ONE Stop: 06/24/21 13:48 Last Admin: 06/24/21 13:58 Dose: 20 mg Documented by: ASHLEE Ketorolac Tromethamine (Ketorolac 30 Mg/Ml Vial) 15 mg IM NOW ONE Stop: 06/24/21 14:51 Last Admin: 06/24/21 15:13 Dose: 15 mg Documented by: ASHLEE Lidocaine (Lidocaine Patch 1 Each Adh..Patch) 1 each TOP DAILY ELLIOT Last Admin: 06/24/21 14:00 Dose: 1 each Documented by: ASHLEE Methocarbamol (Methocarbamol 500 Mg Tablet) 500 mg PO NOW ONE Stop: 06/24/21 13:45 Last Admin: 06/24/21 13:58 Dose: 500 mg Documented by: ASHLEE Methocarbamol (Methocarbamol 500 Mg Tablet) 500 mg PO NOW ONE Stop: 06/24/21 14:51 Last Admin: 06/24/21 15:14 Dose: 500 mg Documented by: ASHLEE Prednisone (Prednisone 20 Mg Tablet) 50 mg PO NOW ONE Stop: 06/24/21 13:45 Last Admin: 06/24/21 13:58 Dose: 50 mg Documented by: ASHLEE Vital Signs Vital signs: Vital Signs - 8 hr 06/24/21 10:47 Temperature 97.7 F Pulse Rate 95 H Respiratory Rate 20 Blood Pressure 153/85 H Pulse Oximetry 98 MDM - Neck Pain/Injury <JERARDO Lopes - Last Filed: 06/24/21 15:20> Imaging Data MRI cervical spine: Radiologist's Impression: PROCEDURE:? MR CERVICAL SPINE WO CON ? INDICATIONS:? Radiculopathy, cervical region ? TECHNIQUE:? Noncontrast sagittal T1 spin echo and T2 fast spin echo, sagittal STIR, foraminal oblique sagittal T2 fast spin echo, and axial gradient echo and T2 fast spin echo through the cervical spine.? ? COMPARISON:? None. ? FINDINGS:? Image quality:? This examination is limited by involuntary motion artifact.? ? Alignment and Curvature:? There is straightening of the normal cervical lordosis. No focal AP alignment abnormality is seen.? ? Bone Marrow:? Marrow demonstrates normal overall signal.? ? Spinal Cord:? Visualized spinal cord has normal size and signal.? No cerebellar tonsillar herniation.? ? Paraspinous Soft Tissues:? No paravertebral masses.? Prevertebral soft tissues are normal in thickness.? ? C2-C3:? No significant abnormality is seen. ? C3-C4:? The disc height is well-preserved.? Loss of disc signal is seen at this level.? A mild degree of generalized disc osteophyte complex is seen.? Mild facet joint hypertrophy is seen.? There is lply-yj-qmldrzjj right-sided and moderate left-sided neural foraminal narrowing seen.? No significant central canal narrowing is seen. ? C4-C5:? The disc height is well-preserved.? Loss of disc signal is seen at this level.? A mild degree of generalized disc osteophyte complex is seen.? Moderate facet joint hypertrophy is seen.? Moderate bilateral neural foraminal narrowing can be seen, right worse than left.? No significant central canal narrowing is seen. ? C5-C6:? The disc height is well-preserved.? Loss of disc signal is seen at this level.? Mild to moderate disc osteophyte complex is seen.? Mild to moderate facet hypertrophy is seen.? Mild to moderate bilateral neural foraminal narrowing is seen.? No central canal narrowing can be seen. ? C6-C7: The disc height is well-preserved.? Loss of disc signal is seen at this level. ? A mild degree of generalized disc osteophyte complex is seen.? Minimal bilateral neural foraminal narrowing can be seen.? Minimal central canal narrowing is seen.? ? C7-T1:? No significant abnormality is seen. ? ? IMPRESSION:? Multiple levels of cervical spine degenerative change are seen, which are overall worst at the C4-C5 level. ? Straightening of the normal cervical lordosis is seen, which is commonly observed in patients with muscular spasm. ? ? Dictated by: Wayne Siegel M.D. on 02/12/2021 at 9:37 ? ? Approved by: Wayne Siegel M.D. on 02/12/2021 at 9:40 ? MDM Narrative Medical decision making narrative: 41-year-old female with history of myocardial infarction x1 coronary stent on Plavix, cervical spine degenerative with radiculopathy, who presents to the emergency department complaining of acute neck pain x5 days with associated headache and left arm radiculopathy. Patient states that this is the 1st time she has had the symptoms with neck pain. She had a MRI of her cervical spine in February 2021 which shows multiple levels of cervical spine degenerative changes and overall worse at the C4-C5 level. In that exam there was no significant central canal narrowing with minimal bilateral neural foraminal narrowing seen between C3-C4, C4-C5, C6-7. Patient denies any trauma since the scan, she is without a fever, mental status changes, weakness, worsening of her symptoms. This is most likely an acute flare of her cervical spine degenerative changes. She was treated with a lidocaine patch, methocarbamol, hydrocodone, prednisone, and Toradol IM with moderate improvement in her symptoms. She recommend she follow-up with her primary care provider within a week, she was given strict return precautions for any worsening of her symptoms, weakness, alteration in mental status, or other new concerns. Recommend outpatient physical therapy, rest, heat packs, ctee-zyr-[id number] pain medication as needed. Headache considerations include, but not limited to: Subarachnoid hemorrhage, but unl ikely as patient denies sudden onset of pain, not worst of life. Meningitis considered, but thought unlikely given lack of Brudzinski's, Kernig's sign, altered mental status or fever. Giant cell arteritis considered, but thought unlikely given lack of unilateral findings, pain in taoist, vision change. Cauda equina syndrome, fibromyalgia, polymyalgia rheumatica, cervical arthritis, cervical strain from sleep posture. Other serious diagnoses considered unlikely given lack of red flag findings such as sudden onset, increasing frequency, immunocompromise, systemic signs (fever, chills, stiff neck, or rash), focal neurologic findings, trauma, blood thinners, etc. Patient is appropriate and amenable to discharge home. Vital signs are stable on repeat examination is unremarkable. Patient has been informed of results. Patient has been given strict return to ER precautions for any new or worsening symptoms. Patient understands to follow up closely with outpatient providers as instructed. Patient understands plan and agrees to discharge home. All questions and concerns answered at this time. Discharge Plan Departure Patient Disposition: Home Clinical Impression: Cervical radiculopathy Instructions: Neck Sprain, Chronic Neck Pain, DI for Neck Pain Activity Restrictions/Additional Instructions: *You have been diagnosed with cervical radiculopathy which is most likely a flare from your degenerative cervical spine. Your MRI shows that you have degenerative changes which is like arthritis of your cervical spine and worse between your C4-C5 vertebrae. There was no significant central canal narrowing which things this is not dangerous. But in a flare, you can have inflammation which causes the symptoms anterior left arm. Please take steroids for the next 5 days, Pepcid to protect her stomach from ulcer, use muscle relaxers, heat packs, light massage, and lidocaine patches as needed to help your symptoms. I hope you start feeling better soon. Please follow-up with your primary care provider for a plan in the future when this gets bad. Physical therapy may be helpful. *What to do: *Please continue to take your regular medications as directed. [x ] [facility] medication [facility]: [facility] ] [ ] New medication written as a paper prescription [ ] No new medications given *Please follow up with your primary care provider in 2-3 days, call for an appointment. Let them know you were seen in the Emergency Department and that we ask that you be seen in follow up. We will electronically transmit a record of today's note if your PCP is in our system *If you do not have a primary care provider please contact the [facility] Resource line at [phone]. They will ask some questions about your medical history and help get you set up with a doctor in the community. *Return to Emergency Department if you should have any new, worsening or concerning symptoms, such as [fever greater than 101F, chills, worsening pain, persistent vomiting or other bothersome symptoms] Prescriptions: New methocarbamol 500 mg tablet 500 mg PO TID PRN (Reason: muscle spasm) Qty: 20 0RF prednisone 50 mg tablet 50 mg PO DAILY Qty: 5 0RF lidocaine 5 % adhesive patch,medicated 1 patch topical DAILY PRN (Reason: pain ) Qty: 15 0RF Rx Instructions: leave on most painful area for up to 12 hrs hydrocodone-acetaminophen 5-325 mg tablet 1 tab PO Q8H PRN (Reason: pain) Qty: 10 0RF famotidine [Pepcid] 20 mg tablet 20 mg PO DAILY Qty: 20 0RF No Action atorvastatin 80 mg Tablet 80 mg PO BEDTIME 0RF clopidogrel 75 mg Tablet 75 mg PO DAILY 0RF aspirin 81 mg Tablet 81 mg PO DAILY 0RF metoprolol succinate [Toprol XL] 25 mg Tablet Extended Release 24 Hr 25 mg PO DAILY 0RF amoxicillin-pot clavulanate [Augmentin] 875-125 mg tablet 1 tab PO Q12H Qty: 14 0RF Referrals: Solange Zamudio DO [Primary Care Provider] - <Jhon Cabral DO - Last Filed: 06/28/21 18:43> Cosign ED Attending Cosbebaature Attestation: I was immediately available in the department for consultation. This documentation has been reviewed and I agree with assessment and plan. Supervised by Jhon Cabral DO
[2021-06-24] MEDS: methocarbamoL 500 MG TABLET PO ×2 (13:58→15:14)
[2021-06-24] MEDS: predniSONE 20 MG TABLET 50 MG PO (13:58)
[2021-06-24] MEDS: FAMOTIDINE 20 MG TABLET PO (13:58)
[2021-06-24] MEDS: HYDROCODONE/ACET 5/325 TABLET 1 TAB PO ×2 (13:58→15:14)
[2021-06-24] MEDS: LIDOCAINE PATCH 1 EACH ADH..PATCH TOP (14:00)
[2021-06-24] MEDS: diazePAM 2 MG TABLET PO (14:16)
[2021-06-24] MEDS: KETOROLAC 30 MG/ML VIAL 15 MG IM (15:13)
== END 2021-06-24 15:52 | disposition home or self-care (01) ==
PROVIDERS: Emergency Provider Nurse Practitioner Critical Care Medicine; PCP Family Medicine
DX: M54.12 Radiculopathy, cervical region (principal)
CPT/HCPCS: 96372; 99283; A9270; J1885

== ENCOUNTER 2021-12-18 19:50 | Emergency (ER) | payer OTHER, SELFPAY ==
[2020-05-15 21:19] VITALS: BMI 33.8
[2021-12-18] VITALS (13 sets, daily range): BP systolic 119–159; BP diastolic 60–75; PULSE 56–83; RESP 10–22; TEMP 36.9; O2SAT 96–100; BMI 36.6
--- NOTE | 2021-12-18 19:59 | DI.RAD.S_ITS ---
PROCEDURE: XR CHEST 1V INDICATIONS: chest pain TECHNIQUE: One view of the chest was acquired. COMPARISON: [facility], CR, XR CHEST 1V, 05/15/2020, 15:14. FINDINGS: Surgical changes and devices: None. Lungs and pleura: Lungs are clear. No pleural effusions or pneumothorax. Mediastinum: Mediastinal contours appear normal. Heart size is normal. Bones and chest wall: No suspicious bony lesions. Overlying soft tissues appear unremarkable. IMPRESSION: 1. No acute cardiopulmonary disease. Dictated by: Pio Woo M.D. on 12/18/2021 at 20:26 Approved by: Pio Woo M.D. on 12/18/2021 at 20:27
[2021-12-18 20:13] LABS: Add Manual Diff / Slide Review NO; Basophils Absolute Auto 0 /uL (0-100); Basophils Percent Auto 0.2 % (0-2); Eosinophils Absolute Auto 100 /uL (0-450); Eosinophils Percent Auto 0.6 % (2-4); Hematocrit 37.4 % (36-46); Hemoglobin 12.8 g/dL (12.0-16.0); Lymphocytes Absolute Auto 4000 /uL (1100-4500); Lymphocytes Percent Auto 43.5 % (25-40); Mean Corpuscular HGB Conc 34.2 % (30-36); Mean Corpuscular Hemoglobin 29.9 PG (26-34); Mean Corpuscular Volume 87.3 fL (80-100); Monocytes Absolute Auto 700 /uL (0-900); Monocytes Percent Auto 7.2 % (3-14); Neutrophils Absolute Auto 4400 /uL (1500-7000); Neutrophils Percent Auto 48.5 % (50-75); Platelet Count 344 X10^3/uL (150-400); Red Blood Cell Count 4.28 X10^6/uL (4.0-5.2); Red Cell Distribution Width 13.8 % (11.6-14.8); White Blood Cell Count 9.1 X10^3/uL (4.5-11.0)
--- NOTE | 2021-12-18 20:14 | PC.NURSE ---
Pt also reports difficulty swallowing
[2021-12-18 20:21] LABS: Alanine Aminotransferase 56 IU/L (<35); Albumin 4.2 g/dL (3.5-5.0); Albumin Globulin Ratio 1.3 (1.0-2.8); Alkaline Phosphatase 95 U/L (38-126); Aspartate Aminotransferase 44 IU/L (14-36); BUN Creatinine Ratio 17.6 (6-22); Bilirubin Total 0.2 mg/dL (0.2-1.3); Blood Urea Nitrogen 15 mg/dL (7-17); Calcium 9.1 mg/dL (8.4-10.2); Carbon Dioxide 30 mmol/L (22-32); Chloride 104 mmol/L (98-107); Creatine Kinase 144 U/L (30-135); Estimated Glomerular Filt Rate > 60 mL/min (>60); Globulin 3.2 g/dL (1.7-4.1); Glucose 114 mg/dL (70-100); HEMOLYSIS < 15 (0-50); Lipase 44 U/L (23-300); Magnesium 1.9 mg/dL (1.6-2.3); Potassium 3.7 mmol/L (3.4-5.1); Sodium 140 mmol/L (137-145); Total Protein 7.4 g/dL (6.3-8.2)
[2021-12-18 20:34] LABS: Troponin I < 0.012 ng/mL (0.01-0.034)
[2021-12-18 20:36] LABS: CKMB % Relative Index 1.8 % (1.5-5.0); Creatine Kinase MB 2.62 ng/mL (<2.37)
--- NOTE | 2021-12-18 22:03 | ED.CHESTPAIN ---
HPI - Chest Pain General Chief Complaint: Chest Pain Stated Complaint: SOB, Chest heaviness, 2 stents in heart Time Seen by Provider: 12/18/21 20:14 Source: patient Mode of arrival: Ambulatory Limitations: no limitations History of Present Illness HPI narrative: 41-year-old woman with known coronary artery disease post 2 coronary stents, hyperlipidemia, hypertension currently on Plavix presents with a couple of weeks of increased work of breathing feeling that she can not get a full breath today it was worse associated with nausea diaphoresis indigestion severe enough that she felt that swallowing was difficult. She notes that when she had had some similar symptoms previously she was given a brief course of steroids that helped as long as she was on the steroids. She has not had any additional either cardiac or pulmonary testing since the stenting a couple of years ago. She does not complain of wheeze does not typically use inhalers. She states that she does smoke however only smokes while she is driving in her car and has been trying to cut down recently. She reports no significant abdominal pain diarrhea constipation, lower extremity edema, headaches, paresthesias or weaknesses. Related Data Home Medications Medication Instructions Recorded Confirmed aspirin 81 mg tablet 81 mg PO DAILY 05/15/20 05/15/20 atorvastatin 80 mg tablet 80 mg PO BEDTIME 05/15/20 05/15/20 clopidogrel 75 mg tablet 75 mg PO DAILY 05/15/20 05/15/20 metoprolol succinate 25 mg 25 mg PO DAILY 05/15/20 05/15/20 tablet,extended release 24 hr (Toprol XL) Previous Rx's Medication Instructions Recorded amoxicillin 875 mg-potassium 1 tab PO Q12H #14 tabs 06/03/20 clavulanate 125 mg tablet (Augmentin) famotidine 20 mg tablet (Pepcid) 20 mg PO DAILY ulcer prevention 06/24/21 #20 tabs hydrocodone 5 mg-acetaminophen 325 1 tab PO Q8H PRN pain #10 tabs 06/24/21 mg tablet lidocaine 5 % topical patch 1 patch topical DAILY PRN pain 06/24/21 #15 ea methocarbamol 500 mg tablet 500 mg PO TID PRN muscle spasm #20 06/24/21 tabs prednisone 50 mg tablet 50 mg PO DAILY neck pain #5 tabs 06/24/21 Allergies Allergy/AdvReac Type Severity Reaction Status Date / Time codeine Allergy Verified 05/15/20 14:18 ibuprofen Allergy Verified 05/15/20 14:18 pregabalin [From Lyrica] Allergy Verified 05/15/20 14:18 zolpidem [From Ambien] Allergy Verified 05/15/20 14:18 Review of Systems Review of Systems Narrative: Remainder of complete review of systems is otherwise unremarkable except for that included in the HPI. Patient History Medical History Chronic low back pain Coronary artery disease Current smoker Familial hypercholesterolemia NSTEMI (non-ST elevated myocardial infarction) Palpitations Surgical History History of lumbar surgery History of vaginal hysterectomy Hx of heart artery stent Family History Father Familial hypercholesterolemia Coronary artery disease Mother Cancer [place]'s thyroiditis Grandfather Coronary artery disease Social History household members: significant other Smoking Status: Current some day smoker alcohol intake: never Smoking Status: Current some day smoker alcohol intake frequency: holidays/special occasions only Substance Use Type: marijuana Exam Initial Vital Signs Initial Vital Signs: Vital Signs Temperature 98.5 F 12/18/21 19:55 Pulse Rate 79 12/18/21 19:55 Respiratory Rate 19 12/18/21 19:55 Blood Pressure 159/75 H 12/18/21 19:55 Pulse Oximetry 98 12/18/21 19:55 Oxygen Delivery Method 12/18/21 19:55 General: Healthy appearing, in no acute distress. Able to give a complete and coherent history. Well-nourished well-developed HEENT: Moist mucous membranes, normal sclera with reactive pupils, Neck: No JVD, supple Respiratory: Lungs are clear to auscultation, no wheezing no rales no rhonchi. Full and symmetrical air movement Cardiac: Regular rate and rhythm no murmurs no bruits Abdomen: Soft, nontender, good bowel tones, no flank pain Skin: Warm and dry, no rashes Neurologic: Grossly neurologically intact with no obvious asymmetries or abnormalities Extremities: No trauma, well perfused Psych: Cooperative, appropriate insight and affect Course Orders Ordered: ED Orders 12/18/21 21:50 BNP [NT-proBNP (BNP-Adult 18+)] Stat Trop I [Troponin I] Stat 12/18/21 22:35 COVID19 -Nasal RAPID/Pre-Proc Stat 12/19/21 00:43 CT angio chest PE protocol Stat Discontinued Medications Albuterol/Ipratropium (Albuterol/Ipratropium 3 Ml Ampul) 3 ml INH NOW ONE Stop: 12/18/21 22:29 Last Admin: 12/18/21 23:30 Dose: 3 ml Documented By: MANUEL Vital Signs Vital signs: Vital Signs - 8 hr 12/18/21 23:28 12/18/21 21:30 12/18/21 21:30 Pulse Rate 61 Respiratory Rate Blood Pressure 139/68 Pulse Oximetry 96 97 Oxygen Delivery Method Room Air 12/18/21 22:00 12/18/21 22:00 12/18/21 22:30 Pulse Rate 61 Respiratory Rate 18 Blood Pressure 119/62 122/65 Pulse Oximetry 96 Oxygen Delivery Method 12/18/21 22:30 12/18/21 23:00 12/18/21 23:00 Pulse Rate 61 61 Respiratory Rate 13 14 Blood Pressure 133/63 Pulse Oximetry 97 97 Oxygen Delivery Method 12/18/21 23:30 12/18/21 23:31 12/18/21 23:31 Pulse Rate 56 L Respiratory Rate 10 L 12 Blood Pressure 126/60 Pulse Oximetry 99 100 Oxygen Delivery Method 12/19/21 00:00 12/19/21 00:00 12/19/21 00:30 Pulse Rate 67 Respiratory Rate 29 H Blood Pressure 110/58 L 117/56 L Pulse Oximetry 93 Oxygen Delivery Method 12/19/21 00:30 12/19/21 01:03 12/19/21 01:30 Pulse Rate 72 83 64 Respiratory Rate 19 Blood Pressure Pulse Oximetry 95 99 96 Oxygen Delivery Method 12/19/21 01:58 12/19/21 01:58 12/19/21 02:00 Pulse Rate 62 71 Respiratory Rate 29 H 29 H Blood Pressure 124/61 Pulse Oximetry 98 Oxygen Delivery Method Room Air MDM - Chest Pain Lab Data Result diagrams: 12/18/21 20:00 12/18/21 20:00 Labs: Lab Results 12/18/21 12/18/21 12/18/21 Range/Units 20:00 20:00 20:00 WBC 9.1 (4.5-11.0) X10^3/uL RBC 4.28 (4.0-5.2) X10^6/uL Hgb 12.8 (12.0-16.0) g/dL Hct 37.4 (36-46) % MCV 87.3 (80-100) fL MCH 29.9 (26-34) PG MCHC 34.2 (30-36) % RDW 13.8 (11.6-14.8) % Plt Count 344 (150-400) X10^3/uL Neut % (Auto) 48.5 L (50-75) % Lymph % (Auto) 43.5 H (25-40) % Kendall % (Auto) 7.2 (3-14) % Eos % (Auto) 0.6 L (2-4) % Baso % (Auto) 0.2 (0-2) % Neut # (Auto) 4400 (9681-4197) /uL Lymph # (Auto) 4000 (9440-5100) /uL Kendall # (Auto) 700 (0-900) /uL Eos # (Auto) 100 (0-450) /uL Baso # (Auto) 0 (0-100) /uL D-Dimer 538 H (<500) ng/ml Sodium 140 (137-145) mmol/L Potassium 3.7 (3.4-5.1) mmol/L Chloride 104 (98-107) mmol/L Carbon Dioxide 30 (22-32) mmol/L BUN 15 (7-17) mg/dL Creatinine 0.85 (0.52-1.04) mg/dL Estimated GFR > 60 (>60) mL/min BUN/Creatinine Ratio 17.6 (6-22) Glucose 114 H (70-100) mg/dL Calcium 9.1 (8.4-10.2) mg/dL Magnesium 1.9 (1.6-2.3) mg/dL Total Bilirubin 0.2 (0.2-1.3) mg/dL AST 44 H (14-36) IU/L ALT 56 H (<35) IU/L Alkaline Phosphatase 95 (38-126) U/L Total Creatine Kinase 144 H (30-135) U/L CK-MB (CK-2) 2.62 H (<2.37) ng/mL CK-MB (CK-2) Rel Index 1.8 (1.5-5.0) % Troponin I < 0.012 (0.01-0.034) ng/mL NT-Pro-B Natriuret Pep (<125) pg/mL Total Protein 7.4 (6.3-8.2) g/dL Albumin 4.2 (3.5-5.0) g/dL Globulin 3.2 (1.7-4.1) g/dL Albumin/Globulin Ratio 1.3 (1.0-2.8) Lipase 44 (23-300) U/L SARS-CoV-2 (PCR) (Negative) 12/18/21 12/18/21 12/18/21 Range/Units 21:50 21:50 22:35 WBC (4.5-11.0) X10^3/uL RBC (4.0-5.2) X10^6/uL Hgb (12.0-16.0) g/dL Hct (36-46) % MCV (80-100) fL MCH (26-34) PG MCHC (30-36) % RDW (11.6-14.8) % Plt Count (150-400) X10^3/uL Neut % (Auto) (50-75) % Lymph % (Auto) (25-40) % Kendall % (Auto) (3-14) % Eos % (Auto) (2-4) % Baso % (Auto) (0-2) % Neut # (Auto) (9830-3686) /uL Lymph # (Auto) (4983-0748) /uL Kendall # (Auto) (0-900) /uL Eos # (Auto) (0-450) /uL Baso # (Auto) (0-100) /uL D-Dimer (<500) ng/ml Sodium (137-145) mmol/L Potassium (3.4-5.1) mmol/L Chloride (98-107) mmol/L Carbon Dioxide (22-32) mmol/L BUN (7-17) mg/dL Creatinine (0.52-1.04) mg/dL Estimated GFR (>60) mL/min BUN/Creatinine Ratio (6-22) Glucose (70-100) mg/dL Calcium (8.4-10.2) mg/dL Magnesium (1.6-2.3) mg/dL Total Bilirubin (0.2-1.3) mg/dL AST (14-36) IU/L ALT (<35) IU/L Alkaline Phosphatase (38-126) U/L Total Creatine Kinase (30-135) U/L CK-MB (CK-2) (<2.37) ng/mL CK-MB (CK-2) Rel Index (1.5-5.0) % Troponin I < 0.012 (0.01-0.034) ng/mL NT-Pro-B Natriuret Pep 110 (<125) pg/mL Total Protein (6.3-8.2) g/dL Albumin (3.5-5.0) g/dL Globulin (1.7-4.1) g/dL Albumin/Globulin Ratio (1.0-2.8) Lipase (23-300) U/L SARS-CoV-2 (PCR) Negative (Negative) Imaging Data Chest x-ray: Radiologist's Impression: FINDINGS:? ? Surgical changes and devices:? None.? ? Lungs and pleura:? Lungs are clear.? No pleural effusions or pneumothorax.? ? Mediastinum:? Mediastinal contours appear normal.? Heart size is normal.? ? Bones and chest wall:? No suspicious bony lesions.? Overlying soft tissues appear unremarkable.? ? IMPRESSION:? ? 1.? No acute cardiopulmonary disease. ? ? ? Dictated by: Pio Woo M.D. on 12/18/2021 at 20:26 ? ? CT scan - chest: Radiologist's Impression: FINDINGS:? Image quality:? Excellent.? ? Pulmonary arteries:? Pulmonary arteries are normal in size, and demonstrate no intraluminal filling defects to suggest central pulmonary embolism.? ? Lower Neck: No lymphadenopathy by size criteria. Thyroid:? Visualized thyroid demonstrates no discrete nodules. Axillae: No lymphadenopathy by size criteria. Chest Wall:? Unremarkable.? Bones: Visualized osseous structures demonstrate no suspicious lesions. ? Lungs and Airways:? No acute consolidation.? There is mild dependent atelectasis.? The trachea and central airways are patent. Pleura: No pneumothorax or pleural effusions.? ? Heart: Heart size is enlarged.? No pericardial effusion. Thoracic Vessels: The thoracic aorta is normal in size.? Mediastinum and Ann: No lymphadenopathy by size criteria. Esophagus: No wall thickening. No hiatal hernia. Abdomen:? Visualized upper abdominal solid organs appear normal in the early arterial phase of enhancement.? ? IMPRESSION:? ? 1. No evidence of pulmonary embolism. ? 2. No acute airspace consolidation.? ? ? Dictated by: Pio Woo M.D. on 12/19/2021 at 1:43 ? ? ECG Data Interpretation: Sinus rhythm at a rate of 70 Poor baseline, normal intervals and axis No acute ischemic changes MDM Narrative Medical decision making narrative: 41-year-old woman with a history of 2 prior stents presents with 3 weeks of exertional dyspnea without specific etiology elucidated. No evidence of acute coronary syndrome, congestive heart failure, infectious etiology, pneumothorax, pericardial effusion, pulmonary embolism, significant anemia. She did not have any significant response to a nebulizer and asthma/COPD is felt to be less likely. 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 Discharge Plan Departure Patient Disposition: Home Clinical Impression: Exertional dyspnea Instructions: DI for Shortness of Breath Activity Restrictions/Additional Instructions: Thank you for coming in today I did not find a life-threatening explanation for your increased shortness of breath and chest tightness over the last number of weeks. Specifically, there is no evidence of acute heart attack or heart attack like syndrome. No infection, significant anemia, kidney or electrolyte abnormalities. There is no suggestion of congestive heart failure on physical exam, blood work or imaging studies. The CT scan of the chest did not show blood clots to your lungs, fluid collecting round her heart or any type of subtle pulmonary infection. The fact that a nebulizer treatment did not seem to help your shortness of breath suggests that this is not a lung related problem. At this point it is safe for you to go home however I would recommend that you talk to your primary care doctor. The next step in your workup may be and outpatient nuclear medicine test and or an echocardiogram. If you find that you are getting worse or develop any new symptoms, please feel free to return to the emergency department for further evaluation. Prescriptions: No Action atorvastatin 80 mg Tablet 80 mg PO BEDTIME clopidogrel 75 mg Tablet 75 mg PO DAILY aspirin 81 mg Tablet 81 mg PO DAILY metoprolol succinate [Toprol XL] 25 mg Tablet Extended Release 24 Hr 25 mg PO DAILY amoxicillin-pot clavulanate [Augmentin] 875-125 mg tablet 1 tab PO Q12H Qty: 14 0RF methocarbamol 500 mg tablet 500 mg PO TID PRN (Reason: muscle spasm) Qty: 20 0RF prednisone 50 mg tablet 50 mg PO DAILY Qty: 5 0RF lidocaine 5 % adhesive patch,medicated 1 patch topical DAILY PRN (Reason: pain ) Qty: 15 0RF Rx Instructions: leave on most painful area for up to 12 hrs hydrocodone-acetaminophen 5-325 mg tablet 1 tab PO Q8H PRN (Reason: pain) Qty: 10 0RF famotidine [Pepcid] 20 mg tablet 20 mg PO DAILY Qty: 20 0RF Referrals: Solange Zamudio DO [Primary Care Provider] - Visit Report Forms: Patient Portal/API
[2021-12-18 22:41] LABS: D Dimer 538 ng/ml (<500)
[2021-12-18 22:55] LABS: NT-proBNP (BNP-Adult 18+) 110 pg/mL (<125)
[2021-12-18 22:59] LABS: Troponin I < 0.012 ng/mL (0.01-0.034)
[2021-12-18 23:05] LABS: COVID19 -Nasal RAPID Negative (Negative)
[2021-12-18] MEDS: ALBUTEROL/IPRATROPIUM 3 ML AMPUL INH (23:30)
[2021-12-19] VITALS: BP 110/58; PULSE 67; RESP 29; O2SAT 93
[2021-12-19 00:30] VITALS: BP 117/56; PULSE 72; RESP 19; O2SAT 95
--- NOTE | 2021-12-19 00:43 | DI.CT.S_ITS ---
PROCEDURE: CT ANGIO CHEST PE PROTOCOL INDICATIONS: delevated d dimer, dyspnea TECHNIQUE: After the administration of intravenous contrast, 2 mm thick sections acquired from the pulmonary apices to the posterior costophrenic angles. 3-dimensional maximum intensity projection (MIP) coronal and sagittal reformats were then acquired through the thorax. For radiation dose reduction, the following was used: automated exposure control, adjustment of mA and/or kV according to patient size. COMPARISON: [facility] [place], CT, CT ANGIO CHEST PE PROTOCOL, 05/15/2020, 16:00. FINDINGS: Image quality: Excellent. Pulmonary arteries: Pulmonary arteries are normal in size, and demonstrate no intraluminal filling defects to suggest central pulmonary embolism. Lower Neck: No lymphadenopathy by size criteria. Thyroid: Visualized thyroid demonstrates no discrete nodules. Axillae: No lymphadenopathy by size criteria. Chest Wall: Unremarkable. Bones: Visualized osseous structures demonstrate no suspicious lesions. Lungs and Airways: No acute consolidation. There is mild dependent atelectasis. The trachea and central airways are patent. Pleura: No pneumothorax or pleural effusions. Heart: Heart size is enlarged. No pericardial effusion. Thoracic Vessels: The thoracic aorta is normal in size. Mediastinum and Ann: No lymphadenopathy by size criteria. Esophagus: No wall thickening. No hiatal hernia. Abdomen: Visualized upper abdominal solid organs appear normal in the early arterial phase of enhancement. IMPRESSION: 1. No evidence of pulmonary embolism. 2. No acute airspace consolidation. Dictated by: Pio Woo M.D. on 12/19/2021 at 1:43 Approved by: Pio Woo M.D. on 12/19/2021 at 1:46
[2021-12-19 01:03] VITALS: PULSE 83; O2SAT 99
[2021-12-19 01:30] VITALS: PULSE 64; O2SAT 96
[2021-12-19 01:58] VITALS: BP 124/61; PULSE 62; RESP 29; O2SAT 98
[2021-12-19 02:00] VITALS: PULSE 71; RESP 29
== END 2021-12-19 02:03 | disposition home or self-care (01) ==
PROVIDERS: Emergency Provider Emergency Medicine; PCP Family Medicine
DX: R06.00 Dyspnea, unspecified (principal); R07.9 Chest pain, unspecified; Z95.5 Presence of coronary angioplasty implant and graft; Z20.822 Contact with and (suspected) exposure to COVID-19
CPT/HCPCS: 36415; 71045; 71275; 80053; 82550; 82553; 83690; 83735; 83880; 84484; 85025; 85379; 87635; 93005; 93010; 94640; 99284; C9803; Q9967